=== PATIENT | male | born 1940 | race Caucasian/White ===

== ENCOUNTER 2021-01-25 17:15 | Emergency (ER) | payer MEDICARE, SELFPAY ==
--- NOTE | ~2021-01-25 | CT_ITS ---
EXAMINATION: CT abdomen pelvis w con INDICATION: Right lower quadrant abdominal pain TECHNIQUE: Computed tomographic images of the abdomen and pelvis were obtained after the administrati on of 100 cc of Omnipaque 350 intravenous contrast. The dose-length product (DLP) was 604.56 mGy-cm. Automated exposure control and iterative reconstruction technique were employed. COMPARISON: 09/05/2019 FINDINGS: Minimal dependent atelectasis is present in the lung bases. The heart size is normal. The g allbladder is surgically absent. There is mild enlargement of the common bile duct and central intrah epatic ducts which is likely due to post cholecystectomy state. Trace pneumobilia is again noted. The liver, spleen, pancreas, and adrenal glands are normal. The kidneys are unremarkable. No pathologica lly enlarged abdominal or pelvic lymph nodes are identified. There is no free intraperitoneal gas or evidence of bowel obstruction. There is calcified atherosclerosis of the aorta and many of the other arteries. The appendix is normal. Colonic diverticulosis is present without evidence of diverticuliti s. There is a large right inguinal hernia containing nonobstructed small bowel. Changes of mesh ventr al hernia repair are noted. There is severe lumbar spondylosis. IMPRESSION: 1. Large right extrarenal hernia containing nonobstructed small bowel. Reviewed, dictated and finalized at location A.
[2021-01-25 17:18] VITALS: BP 156/78; PULSE 95; RESP 18; TEMP 36.3; O2SAT 99
[2021-01-25 17:42] VITALS: BP 165/71
[2021-01-25 17:46] VITALS: BP 148/76
[2021-01-25 17:46] LABS: Basophils Absolute Auto 0.1 K/mm3 (0.0-0.1); Basophils Percent Auto 0.9 % (0.2-1.2); Eosinophils Absolute Auto 0.4 K/mm3 (0-0.3); Eosinophils Percent Auto 4.9 % (0-4.4); Hematocrit 48.3 % (42.0-52.0); Hemoglobin 16.5 g/dL (14.0-18.0); Immature Granulocyte Absolute 0.04 K/mm3 (0.00-0.031); Immature Granulocyte Percent A 0.5 % (0-0.5); Lymphocytes Absolute Auto 1.43 K/mm3 (0.9-3.2); Lymphocytes Percent Auto 18.8 % (18.3-44.2); Mean Corpuscular HGB Conc 34.2 g/dl (32-36); Mean Corpuscular Hemoglobin 32.9 pg (26-34); Mean Corpuscular Volume 96.4 fl (80-100); Mean Platelet Volume 10.4 fl (7.4-10.4); Monocytes Absolute Auto 0.7 K/mm3 (0.1-0.6); Monocytes Percent Auto 9.6 % (2.6-8.5); Neutrophils Percent Auto 65.3 % (45.5-73.1); Platelet Count Result 204 k/mm3 (150-375); Red Blood Count 5.01 M/mm3 (4.6-6.20); Red Cell Distribution Width 12.2 % (11.5-14.5); White Blood Count 7.6 K/mm3 (4.5-10.0)
--- NOTE | 2021-01-25 17:52 | ED.ABDPAIN ---
HPI - Abdominal Pain General Chief Complaint: Abdominal Pain Stated Complaint: rt abd pain shooting down leg Time Seen by Provider: 01/25/21 17:29 Source: patient Mode of arrival: ambulatory Limitations: no limitations History of Present Illness HPI narrative: Patient is an 80-year-old male complaining of right lower quadrant pain, 5 out of 10, nonradiating, dull that started approximately 2 days ago after eating [facility] crispy chicken . Patient also complained of urinary symptoms, dribbling . Patient denies any chest pain, shortness of breath, nausea, vomiting, diarrhea, fever or chills. MD elicited complaint: abdominal pain Location: RLQ Related Data Allergies Allergy/AdvReac Type Severity Reaction Status Date / Time No Known Drug Allergies Allergy Unknown Unknown Verified 01/25/21 17:36 Review of Systems Review of Systems: All systems reviewed & are unremarkable except as noted in HPI and below Constitutional: Constitutional: Denies body ache(s), Denies chills, Denies excessive sweating, Denies fatigue, Denies fever(s), Denies headache(s), Denies lethargy, Denies malaise, Denies weakness and Denies weight loss Eyes: Eyes: Denies blurry vision, Denies change in vision and Denies loss of vision ENT: Denies dizziness, Denies ear discharge, Denies headache(s), Denies lip swelling, Denies epistaxis, Denies nasal congestion, Denies neck pain, Denies throat swelling and Denies tongue swelling Cardiovascular: Cardiovascular: Denies chest pain, Denies chest pain at rest, Denies chest pain with activity, Denies diaphoresis, Denies rapid heart rate, Denies edema, Denies irregular heart rhythm, Denies lightheadedness, Denies palpitations, Denies dyspnea and Denies dyspnea on exertion Respiratory: Respiratory: Denies chest congestion, Denies cough, Denies hemoptysis, Denies dyspnea and Denies dyspnea on exertion Gastrointestinal: Gastrointestinal: Denies melena, Denies hematochezia, Denies diarrhea, Denies nausea, Denies vomiting and Denies hematemesis Musculoskeletal: Musculoskeletal: Denies abnormal gait, Denies deformity, Denies joint swelling, Denies limited range of motion, Denies neck pain and Denies numbness Neurologic: Denies Abnormal speech present, Denies abnormal gait, Denies confusion, Denies dizziness, Denies headache(s), Denies focal weakness, Denies loss of vision, Denies numbness, Denies Other visual disturbances, Denies Sensory deficit (Neuro) and Denies weakness Psychiatric: Psychiatric: Denies confusion, Denies depression, Denies auditory hallucinations, Denies homicidal ideation and Denies suicidal ideation Endocrine: Endocrine: Denies cold intolerance, Denies excessive sweating, Denies fatigue, Denies heat intolerance and Denies palpitations Hematologic/Lymphatic: Hematologic/Lymphatic: Denies easy bleeding and Denies easy bruising Allergic/Immunologic: Allergic/Immunologic: Denies lip swelling, Denies throat swelling and Denies tongue swelling PMFSH Past Medical History Medical History Cataracts, bilateral Clavicle fracture DVT (deep venous thrombosis) Gallstones Gout HTN (hypertension) Surgical History Surgical History History of cataract surgery Hx of cholecystectomy Social History Social History Smoking status: Never smoker Second hand tobacco smoke exposure: No Alcohol intake: current Gender identity (if verbalized by the patient): Male Exam Const: General: cooperative, healthy appearing, comfortable, no acute distress, well developed, alert and awake; No confusion Orientation/consciousness: oriented to person, oriented to place, oriented to time, patient oriented x3 and No confusion Limitations: no limitations HENMT: Head: normal to inspection, normocephalic and atraumatic Ears: hearing grossly normal bilaterally, TM normal on
[2021-01-25 17:57] LABS: Alanine Aminotransferase 25 U/L (4-50); Albumin Level 4.6 g/dL (3.5-5.1); Alkaline Phosphatase 91 U/L (38-126); Anion Gap 8 mmol/L (8-16); Aspartate Amino Transferase 38 U/L (17-59); Bilirubin,Total 3.5 mg/dL (0.2-1.3); Blood Urea Nitrogen 9 mg/dL (9-20); Calcium 9.5 mg/dL (8.4-10.2); Carbon Dioxide 28 mmol/L (22-30); Chloride 99 mmol/L (98-107); Estimated CRCL calculation 59 ml/min; Estimated Glomerular Filt Rate > 60; Glucose 86 mg/dL (75-110); Lipase 78 U/L (23-300); Potassium 4.1 mmol/L (3.4-5.0); Sodium 135 mmol/L (137-145)
[2021-01-25 18:30] LABS: Basophils Percent Auto 0.6 % (0.2-1.2); Eosinophils Absolute Auto 0.4 K/mm3 (0-0.3); Eosinophils Percent Auto 5.5 % (0-4.4); Hematocrit 41.7 % (42.0-52.0); Hemoglobin 14.3 g/dL (14.0-18.0); Immature Granulocyte Absolute 0.02 K/mm3 (0.00-0.031); Immature Granulocyte Percent A 0.3 % (0-0.5); Lymphocytes Absolute Auto 1.01 K/mm3 (0.9-3.2); Mean Corpuscular HGB Conc 34.3 g/dl (32-36); Mean Corpuscular Hemoglobin 33.2 pg (26-34); Mean Corpuscular Volume 96.8 fl (80-100); Mean Platelet Volume 10.6 fl (7.4-10.4); Monocytes Absolute Auto 0.7 K/mm3 (0.1-0.6); Monocytes Percent Auto 9.9 % (2.6-8.5); Neutrophils Absolute Auto 4.6 K/mm3 (1.3-6.7); Neutrophils Percent Auto 68.7 % (45.5-73.1); Platelet Count Result 155 k/mm3 (150-375); Red Blood Count 4.31 M/mm3 (4.6-6.20); White Blood Count 6.8 K/mm3 (4.5-10.0)
[2021-01-25 18:40] LABS: INR 0.9; Prothrombin Time 12.7 Seconds (11.1-14.7)
[2021-01-25 18:41] LABS: Partial Thromboplastin Time 27.2 SECONDS (22.3-36.8)
[2021-01-25 18:42] LABS: Lactic Acid Reflex 0.8 mmol/L (0.7-2.1)
[2021-01-25 18:43] LABS: Alanine Aminotransferase 20 U/L (4-50); Albumin Level 3.8 g/dL (3.5-5.1); Alkaline Phosphatase 70 U/L (38-126); Anion Gap 4 mmol/L (8-16); Aspartate Amino Transferase 33 U/L (17-59); Bilirubin,Total 2.8 mg/dL (0.2-1.3); Blood Urea Nitrogen 9 mg/dL (9-20); Calcium 8.5 mg/dL (8.4-10.2); Carbon Dioxide 27 mmol/L (22-30); Chloride 101 mmol/L (98-107); Estimated CRCL calculation 66 ml/min; Estimated Glomerular Filt Rate > 60; Glucose 79 mg/dL (75-110); Lipase 56 U/L (23-300); Sodium 132 mmol/L (137-145)
[2021-01-25] MEDS: LACTATED RINGERS 1,000 ML 999 ML IV CONT (18:58)
[2021-01-25 19:50] LABS: Add Urine Microscopic? YES; Appearance Urine Clear (Clear); Bilirubin Urine Negative (Negative); Blood Urine Negative (Negative); Color Urine Straw (Yellow); Glucose Urine UA Negative (Negative); Ketones Urine Trace mg/dL (Negative); Leukocyte Esterase Ur Negative LEU/UL (Negative); Nitrate Urine Negative (Negative); Protein Urine Negative (Negative); RBC Urine 0-2 /hpf (0-2); Specific Grav Ur 1.023 (1.001-1.035); Urobilinogen Urine Negative mg/dL (<2.0); WBC Urine 0-3 /hpf
[2021-01-25 20:48] VITALS: BP 138/74; PULSE 98; RESP 18; O2SAT 98
== END 2021-01-25 20:51 | disposition home or self-care (01) ==
PROVIDERS: Emergency Provider Emergency Medicine; PCP Internal Medicine
DX: K40.90 Unilateral inguinal hernia, without obstruction or gangrene, not specified as recurrent (principal); I10 Essential (primary) hypertension; M10.9 Gout, unspecified; Z98.42 Cataract extraction status, left eye; Z86.718 Personal history of other venous thrombosis and embolism; Z98.41 Cataract extraction status, right eye
CPT/HCPCS: 36415; 74177; 80053; 81001; 83605; 83690; 85025; 85610; 85730; 96360; 99284; J7120; Q9967

== ENCOUNTER 2021-11-24 06:45 | Inpatient (IN) | payer MEDICARE, SELFPAY ==
[2021-11-24] VITALS (13 sets, daily range): BP systolic 82–172; BP diastolic 53–87; PULSE 91–126; RESP 16–20; TEMP 36.2–37.2; O2SAT 98–100; BMI 26.4
--- NOTE | ~2021-11-24 | CT_ITS ---
EXAMINATION: CT abdomen pelvis w con DATE: 11/24/2021 08:07 INDICATION: Lower gastrointestinal hemorrhage. TECHNIQUE: Computed tomography (CT) of the abdomen and pelvis was performed with 100 mL Omnipaque 350 intravenous contrast. Automated exposure control and iterative reconstruction technique were employe d. The dose-length product was 683.27 mGy-cm. COMPARISON: CT abdomen and pelvis 01/25/2021 FINDINGS: The visualized portions of the lung bases demonstrate mild atelectasis. There are nodules i n the lower lobes measuring up to 5 mm. No pleural effusion. No pleural effusion. The heart size is n ormal. No pericardial effusion. Pneumobilia is noted, likely secondary to sphincterotomy. There are c hanges of cholecystectomy. The spleen, pancreas, adrenal glands, and kidneys are normal. The prostate is severely enlarged. There is diverticulosis of the colon without evidence of diverticulitis. The a ppendix is normal. There are changes of ventral hernia repair. There is a right inguinal hernia conta ining nonobstructed small bowel. There is prominent fat in left inguinal canal. There are changes of left inguinal hernia repair. There are no pathologically enlarged lymph nodes. There is no free intra peritoneal fluid. There is severe lumbar spondylosis. IMPRESSION: 1. Right inguinal hernia containing nonobstructed small bowel. 2. Prominent fat in left inguinal canal that may be a recurrent inguinal hernia or the normal postope rative appearance. 3. New small nodules in the lower lobes of the lungs, likely infection. Reviewed, dictated and finalized at location E. AND EXHIBIT DESIGNER IMPRESSION: 1. Right inguinal hernia containing nonobstructed small bowel. 2. Prominent fat in left inguinal canal that may be a recurrent inguinal hernia or the normal postoperative appearance. 3. New small nodules in the lower lobes of the lungs, likely infection.
[2021-11-24] MEDS: LACTATED RINGERS 1,000 ML 999 ML IV CONT (07:00)
[2021-11-24 07:24] LABS: Basophils Absolute Auto 0.1 K/mm3 (0.0-0.1); Basophils Percent Auto 1.1 % (0.2-1.2); Eosinophils Absolute Auto 0.5 K/mm3 (0-0.3); Eosinophils Percent Auto 7.5 % (0-4.4); Hematocrit 44.3 % (42.0-52.0); Hemoglobin 14.6 g/dL (14.0-18.0); Immature Granulocyte Absolute 0.03 K/mm3 (0.00-0.031); Immature Granulocyte Percent A 0.5 % (0-0.5); Lymphocytes Absolute Auto 1.32 K/mm3 (0.9-3.2); Lymphocytes Percent Auto 20.7 % (18.3-44.2); Mean Corpuscular Hemoglobin 32.6 pg (26-34); Mean Corpuscular Volume 98.9 fl (80-100); Mean Platelet Volume 10.6 fl (7.4-10.4); Monocytes Absolute Auto 0.6 K/mm3 (0.1-0.6); Monocytes Percent Auto 8.9 % (2.6-8.5); Neutrophils Absolute Auto 3.9 K/mm3 (1.3-6.7); Neutrophils Percent Auto 61.3 % (45.5-73.1); Platelet Count Result 176 k/mm3 (150-375); Red Blood Count 4.48 M/mm3 (4.6-6.20); Red Cell Distribution Width 12.3 % (11.5-14.5); White Blood Count 6.4 K/mm3 (4.5-10.0)
--- NOTE | 2021-11-24 07:30 | ED.GIBLEED ---
HPI - GI Bleed General Chief complaint: GI Bleed Stated complaint: bloody stools Time Seen by Provider: 11/24/21 07:01 Source: patient History of Present Illness HPI Narrative: Patient presents with bloody stool. Patient reports symptoms started this morning he had 3 episode of diarrhea that were dee blood he was concerned so he came to the ER for evaluation. Patient denies any history of the same denies the use of any blood thinners denies any NSAID use denies any abdominal pain. Does report feels a little bit lightheaded. Colitis but is not associated with stool just bloody diarrhea. Denies any GI history. Related Data Allergies Allergy/AdvReac Type Severity Reaction Status Date / Time No Known Drug Allergies Allergy Unknown Unknown Verified 11/24/21 08:13 Review of Systems Review of Systems: CONSTITUTIONAL: Denies fever, chills, or sweats. EYES: Denies visual changes, redness, or discharge. ENT: Denies rhinorrhea, congestion, sore throat, or otalgia. CARDIOVASCULAR: Denies chest pain, palpitations, or edema. RESPIRATORY: Denies cough or dyspnea. GASTROINTESTINAL: Denies abdominal pain, nausea, vomiting. GENITOURINARY: Denies dysuria or hematuria. SKIN: Denies rash or itching. MUSCULOSKELETAL: Denies back pain, joint pain, or myalgia. NEUROLOGIC: Denies headache, numbness, or weakness. PSYCHIATRIC: Denies anxiety or depression. All systems reviewed & are unremarkable except as noted in HPI and below PMFSH Past Medical History Medical History Cataracts, bilateral Clavicle fracture DVT (deep venous thrombosis) Gallstones Gout HTN (hypertension) Surgical History Surgical History History of cataract surgery Hx of cholecystectomy Social History Social History Smoking status: Never smoker Second hand tobacco smoke exposure: No Alcohol intake: current Gender identity (if verbalized by the patient): Male Exam Narrative: GENERAL: Well-appearing, well-nourished, and in no acute distress. HEAD: Normocephalic, atraumatic. EYES: PERRLA and EOMI. ENT: Nares clear, no rhinorrhea or epistaxis. Mucous membranes moist. NECK: Supple. No masses. No JVD CHEST: Clear to auscultation. No respiratory distress. No wheezes rales or rhonchi HEART: Regular rate and rhythm. No murmur heard. Normal peripheral pulses. ABDOMEN: Soft, nontender, nondistended, normal active bowel sounds. EXTREMITIES: Normal range of motion. No edema. SKIN: Warm, dry, no rash. NEURO: No focal deficits. Alert and oriented x3. PSYCH: Normal mood and affect. Course Reevaluation(s) Reevaluation #1: Patient continues to have flank bloody stools heart rate is slowly increasing patient is in the process of being crossmatched for 2 units of blood. Plan for admission Date: 11/24/21 Time: 08:38 Consultations Consultation #1: Discussed case with GI given patient's dee blood to evaluate as an inpatient for possible scope patient post hospital seen for admission. Date: 11/24/21 Time: 08:39 Vital Signs Vital signs: Vital Signs Temperature 36.7 C 11/24/21 06:46 Pulse Rate 126 H 11/24/21 06:46 Respiratory Rate 18 11/24/21 06:46 Blood Pressure 122/60 11/24/21 06:46 Pulse Oximetry 100 11/24/21 06:46 Temperature 36.8 C 11/24/21 10:10 Pulse Rate 104 H 11/24/21 10:10 Respiratory Rate 20 11/24/21 10:10 Blood Pressure 166/87 H 11/24/21 10:10 Pulse Oximetry 100 11/24/21 10:10 MDM - GI Bleed [facility] Narrative Medical decision making narrative: Patient presents for dee bloody diarrhea. Patient overall looks clinically well vital signs initially reassuring patient had multiple episodes of bowel movements in the ER which were dee blood. Labs imaging ordered and were clinically unremarkable. Patient reported feeling worse throughout his ER stay and his heart rat
[2021-11-24 07:37] LABS: Alanine Aminotransferase 19 U/L (4-50); Albumin Level 3.8 g/dL (3.5-5.1); Alkaline Phosphatase 70 U/L (38-126); Anion Gap 6 mmol/L (8-16); Aspartate Amino Transferase 28 U/L (17-59); Bilirubin,Total 1.5 mg/dL (0.2-1.3); Blood Urea Nitrogen 9 mg/dL (9-20); Calcium 8.8 mg/dL (8.4-10.2); Carbon Dioxide 25 mmol/L (22-30); Chloride 103 mmol/L (98-107); Estimated CRCL calculation 58 ml/min; Estimated Glomerular Filt Rate > 60; Glucose 104 mg/dL (65-110); Lipase 70 U/L (23-300); Magnesium 2.3 mg/dL (1.6-2.3); Potassium 3.5 mmol/L (3.4-5.0); Sodium 134 mmol/L (137-145)
[2021-11-24] MEDS: DICYCLOMINE HCL INJ 20 MG/2 ML VIAL IM (08:22)
[2021-11-24 08:28] LABS: INR 0.9; Prothrombin Time 12.5 Seconds (11.1-14.7)
[2021-11-24 08:29] LABS: Partial Thromboplastin Time 24.5 SECONDS (22.3-36.8)
--- NOTE | 2021-11-24 08:31 | ECG_ITS ---
Measurements Intervals [place] Rate: 112 P: 76 FL: 162 QRS: -43 QRSD: 73 T: 33 QT: 316 QTc: 432 Interpretive Statements SINUS TACHYCARDIA ATRIAL PREMATURE COMPLEXES CONSIDER INFERIOR INFARCT, AGE INDETERMINATE BASELINE ARTIFACT- I, II, III, AVR, AVF, V2-V6 ABNORMAL ECG Electronically Signed On 11-24-2021 12:05:06 DISTRIBUTION OPERATIONS SUPERVISOR by Uziel Ni D.O.
[2021-11-24] MEDS: TUBING, BLOOD SET 1 EACH XX (09:11)
[2021-11-24] MEDS: SODIUM CHLORIDE 0.9% IV 1,000 ML 125 ML IV CONT ×2 (09:29→20:26)
[2021-11-24 10:54] LABS: SARS-CoV-2 RNA PCR Negative
--- NOTE | 2021-11-24 11:51 | PC.NURSE ---
pt has been having copious amounts of bright red blood stools. throughout the morning. has some dizziness and abd pain
--- NOTE | 2021-11-24 13:50 | PM.IMHP ---
H&P: HPI History of Present Illness Date/Time: 11/24/21 13:50 Chief Complaint: Bloody stools. Narrative: This is an 81-year-old male with history of hypertension and gout who presented to the emergency department via EMS from home for evaluation of bloody stools. He developed loose stools this morning and he had 3 episodes of dee bloody diarrhea prior to coming in for evaluation. Since that time he has had multiple bloody stools, mostly bright red blood though some have been admixed with dark maroon-colored clots. Aside from mild lightheadedness and occasional tenesmus, he has no other complaints and he specifically denies abdominal pain, distension, nausea, and vomiting. He has not had fever, chills, or sweats. He denies having similar symptoms in the past though it looks like he had a colonoscopy done many years ago for rectal bleeding in November 2012 which demonstrated extensive diverticulosis and internal hemorrhoids. Review of Systems Review of Systems: 12 systems were reviewed. no cold or flu symptoms. Denies sick contacts. Denies chest pain shortness of breath. No cough. Denies dysuria. CT of the abdomen and pelvis today showed findings of infection at the lung bases though patient denies history to suggest pneumonia. He also denies dysphagia and concerns for aspiration. He has never had signs or symptoms of alcohol withdrawal. Except as documented, all other systems were reviewed and are negative. [facility] Past Medical History Medical History Ascending cholangitis (07/2014) Clavicle fracture Deep venous thrombosis Dyslipidemia Essential (primary) hypertension Gallstones Gout Surgical History Surgical History History of cataract surgery History of cholecystectomy History of endoscopic retrograde cholangiopancreatography (09/2011) With removal obstructing biliary stone, biliary sphincterotomy and stent placement. History of esophagogastroduodenoscopy Family History Family History Father Coronary artery disease Social History Social History (Updated 11/24/21 @ 20:33 by Nai Claire PA-C) Social History: Surrogate decision maker: Neil Ferrell, son. Code status: Full code. Smoking status: Former smoker Second hand tobacco smoke exposure: No Additional smoking assessment comments: Quit in the 1994.. Alcohol intake: current Alcohol use details: 4-5 beers most nights of the week. Substance use: never Additional living arrangements comments: . Lives alone in [place]. Additional occupation/education comments: Retired. Meds Home Medications and Allergies Home Medications Medication Instructions Recorded Confirmed Type amlodipine 5 mg tablet 5 mg PO DAILY #90 tablet 05/11/21 11/24/21 Rx allopurinol 100 mg tablet 100 mg PO DAILY #90 tablet 11/09/21 11/24/21 Rx Allergies Allergy/AdvReac Type Severity Reaction Status Date / Time No Known Drug Allergies Allergy Unknown Unknown Verified 11/24/21 08:13 Vital Signs Vital Signs - 24 hr 11/24/21 06:46 11/24/21 07:07 11/24/21 08:14 Temperature 98.0 F Pulse Rate 126 H 91 116 H Respiratory Rate 18 18 20 Blood Pressure 122/60 82/65 L 146/64 H Pulse Oximetry 100 98 100 11/24/21 09:01 11/24/21 09:20 11/24/21 10:10 Temperature 98.1 F 98.3 F 98.2 F Pulse Rate 112 H 102 H 104 H Respiratory Rate 20 18 20 Blood Pressure 151/72 H 138/68 166/87 H Pulse Oximetry 100 100 100 11/24/21 11:30 11/24/21 11:59 11/24/21 12:17 Temperature 98.4 F 98.3 F Pulse Rate 105 H 97 96 Respiratory Rate 16 20 16 Blood Pressure 169/79 H 172/53 H 152/66 H Pulse Oximetry 99 99 99 11/24/21 13:11 Temperature 98.9 F Pulse Rate 94 Respiratory Rate 18 Blood Pressure 157/70 H Pulse Oximetry 100 Exam Narrative: General: Well-developed, nontoxic-appearin
--- NOTE | 2021-11-24 16:15 | WPDGICN ---
Assessment and Plan Assessment and plan (1) Rectal bleeding: Code(s): K62.5 - Hemorrhage of anus and rectum Status: Acute Assessment and Plan: he states that he has never had bleeding like this before. I should add that he has not anticoagulated. CT scan does not show any evidence of colitis and he denies abdominal pain that would suggest ischemic colitis. I told he will need a colonoscopy. He was not keen to that idea. I doubt that we would be able to prep him for tomorrow because he is nauseated and would not be able the tolerate that volume of prep at this time (2) Tachycardia: Code(s): R00.0 - Tachycardia, unspecified Status: Acute Assessment and Plan: apparently his pulse was higher earlier. Now it is 100. He states that because of the rapid heart rate they would not let him use the commode but he cannot void in the bedpan and finds it very uncomfortable (3) HTN (hypertension): Qualifiers: Hypertension type: primary hypertension Qualified Code(s): I10 - Essential (primary) hypertension Code(s): I10 - Essential (primary) hypertension Status: Acute Assessment and Plan: he takes amlodipine but now actually is a bit hypotensive. He will be rehydrated and admitted with the intent of performing a colonoscopy, probably Saturday morning GI Consult Note Consult date/time: 11/24/21 16:15 HPI: Siddharth Ferrell is a 81 year old male who came to the emergency room this morning because of rectal bleeding. He states that he thought he was having diarrhea but noted that he had passed only a large amount of dark red blood. He had a couple more episodes at home. He came to the emergency room where he had at least 1 or 2 more bloody stools. So far his hemoglobin is stable. He states that he denies abdominal pain or cramping but he was quite uncomfortable when he was left on the bedpan for an hour or so. He was brought a regular diet for lunch although he 8 very little perhaps a bite or 2. He cannot recall when he had his last colonoscopy but he has had 1 or 2 in the past. He states that he had had an ERCP a couple of times because he kept getting common bile duct stones after his cholecystectomy which was years ago. The attempted ERCP here was unsuccessful and he was sent to [facility] for treatment. He says his appetite is good. He denies nausea vomiting dysphagia or significant heartburn. He has not had any bowel problems lately. He denies straining or severe constipation he states that his doctor who recently ordered blood test told that his cholesterol was the best he has ever seen that he is in great health for his age Review of Systems Review of Systems: All systems reviewed & are unremarkable except as noted in HPI and below PMFSH Past Medical History Medical History Ascending cholangitis (07/2014) Clavicle fracture Deep venous thrombosis Dyslipidemia Essential (primary) hypertension Gallstones Gout Surgical History Surgical History History of cataract surgery History of cholecystectomy History of endoscopic retrograde cholangiopancreatography (09/2011) With removal obstructing biliary stone, biliary sphincterotomy and stent placement. History of esophagogastroduodenoscopy Family History Family History Father Coronary artery disease Social History Social History Smoking status: Former smoker Second hand tobacco smoke exposure: No Additional smoking assessment comments: Quit in the 1980s. Alcohol intake: current Additional living arrangements comments: . Additional occupation/education comments: Retired. Meds Home Medications and Allergies Home Medications Medication Instructions Recorded
[2021-11-24 20:35] LABS: Hematocrit 39.8 % (42.0-52.0); Hemoglobin 13.5 g/dL (14.0-18.0)
[2021-11-24 20:54] LABS: Lactic Acid Reflex 0.6 mmol/L (0.7-2.1)
[2021-11-24 20:57] LABS: CRP < 0.5 mg/dL (<1.0)
--- NOTE | 2021-11-24 23:25 | ADMGEN ---
This patient, Siddharth Ferrell, was admitted to IMU Room 206-02. Patient/family oriented to hospital policies and general routines including ID bracelet, bed and alarms, visiting hours, pain management, procedures, bathroom and other care routines, personal items, smoking policy, room service/diet, and visiting hours. Information on how to activate the Rapid Response Team has been discussed. Patient/Family are encouraged to report perceived risks to care and to ask questions if they do not understand what they are told or what they should do.
[2021-11-25] VITALS (20 sets, daily range): BP systolic 116–175; BP diastolic 58–74; PULSE 89–121; RESP 18–22; TEMP 35.6–37.4; O2SAT 96–100
[2021-11-25 03:08] LABS: Hematocrit 38.4 % (42.0-52.0); Hemoglobin 13.1 g/dL (14.0-18.0); Mean Corpuscular HGB Conc 34.1 g/dl (32-36); Mean Corpuscular Hemoglobin 32.9 pg (26-34); Mean Corpuscular Volume 96.5 fl (80-100); Mean Platelet Volume 10.7 fl (7.4-10.4); Platelet Count Result 154 k/mm3 (150-375); Red Blood Count 3.98 M/mm3 (4.6-6.20); Red Cell Distribution Width 13.5 % (11.5-14.5); White Blood Count 9.9 K/mm3 (4.5-10.0)
[2021-11-25 03:18] LABS: Anion Gap 4 mmol/L (8-16); Blood Urea Nitrogen 10 mg/dL (9-20); Calcium 8.3 mg/dL (8.4-10.2); Carbon Dioxide 23 mmol/L (22-30); Chloride 108 mmol/L (98-107); Estimated CRCL calculation 65 ml/min; Estimated Glomerular Filt Rate > 60; Glucose 92 mg/dL (65-110); Potassium 3.6 mmol/L (3.4-5.0); Sodium 135 mmol/L (137-145)
[2021-11-25 08:32] LABS: Hematocrit 41.1 % (42.0-52.0); Hemoglobin 14.1 g/dL (14.0-18.0)
[2021-11-25] MEDS: allopurinoL 100 MG TABLET PO (09:32)
[2021-11-25] MEDS: amLODIPine BESYLATE 5 MG TABLET PO (09:32)
--- NOTE | 2021-11-25 13:57 | PM.IMPN ---
Progress Note: A&P Assessment and Plan (1) Rectal bleeding: Code(s): K62.5 - Hemorrhage of anus and rectum Status: Acute Assessment and Plan: Patient reports novel having rectal bleeding in the past however it is noted that he had a colonoscopy in November 2012 for evaluation of rectal bleeding, found to have extensive diverticulosis and internal hemorrhoids. CT of the abdomen and pelvis did not show any signs of colitis, diverticulitis, or findings concerning for ischemic colitis. For now we will continue to monitor the patient closely and follow his hemoglobin and hematocrit. Dr. Tate has been consulted and his input is appreciated. With acute bleeding he was transfused 2 unit of PRBC 11/24/2021 (2) Essential (primary) hypertension: Code(s): I10 - Essential (primary) hypertension Status: Acute Assessment and Plan: Blood pressures were reviewed and initially they were in the upper 80s systolic but have progressively increased as the day has gone on. We will review and resume his antihypertensives as appropriate. Continue to monitor closely. (3) Diarrhea: Code(s): R19.7 - Diarrhea, unspecified Status: Acute Assessment and Plan: Send stool culture Subjective Date/time seen: 11/25/21 13:57 Interval history: HPI:This is an 81-year-old male with history of hypertension and gout who presented to the emergency department via EMS from home for evaluation of bloody stools. He developed loose stools this morning and he had 3 episodes of dee bloody diarrhea prior to coming in for evaluation. Since that time he has had multiple bloody stools, mostly bright red blood though some have been admixed with dark maroon-colored clots. Aside from mild lightheadedness and occasional tenesmus, he has no other complaints and he specifically denies abdominal pain, distension, nausea, and vomiting. He has not had fever, chills, or sweats. He denies having similar symptoms in the past though it looks like he had a colonoscopy done many years ago for rectal bleeding in November 2012 which demonstrated extensive diverticulosis and internal hemorrhoids. 11/25/2021 no overnight events. Feels weak. Nursing staff noted increased frequency of stool which is lose and consistency no further blood in stool noted Review of Systems Review of Systems: All systems reviewed & are unremarkable except as noted in HPI and below Exam Narrative: General: Well-developed, nontoxic-appearing elderly male. HEENT: PERRL, EOMI. Sclerae anicteric. Oral mucosa moist. Oropharynx clear. Neck: Supple. Respiratory: Lungs are clear to auscultation bilaterally. Cardiovascular: Regular rate and rhythm with S1-S2. Gastrointestinal: Abdomen is soft, protuberant, and nontender with positive bowel sounds. No guarding or rebound tenderness. Skin: Warm and dry. No rash or lesions on limited exam. Extremities: No cyanosis or clubbing. No edema. Radial and pedal pulses intact. Neurological: Alert. Cranial nerves 2-12 are grossly intact. No gross focal deficits to casual conversation. Psychiatric: Pleasant and cooperative with normal mood and affect. Judgment and insight intact. Objective Data Vital Signs Vital Signs: Vital Signs - 24 hr 11/24/21 17:02 11/24/21 22:36 11/24/21 23:15 Temperature 98.1 F 97.2 F L Pulse Rate 104 H 92 97 Respiratory Rate 18 18 18 Blood Pressure 158/72 H 158/72 H 154/72 H Pulse Oximetry 99 100 99 11/25/21 00:00 11/25/21 01:40 11/25/21 01:41 Temperature Pulse Rate 100 Respiratory Rate Blood Pressure 154/69 H 116/67 Pulse Oximetry 97 11/25/21 02:00 11/25/21 04:00 11/25/21 06:00 Temperature 99.3 F Pulse Rate 97 105 H 95 Respiratory Rate 18 Blood Pressure 140/63 Pulse Oximetry 98 11/25/21 08:00 11/25/21 08:13 11/25/21 09:20 Temperature 96.1 F L Pulse Rate 103 H 97 107 H Respiratory Rate 22 H Blood Pressure 158/73 H 146/63 H Pulse Oximetry
--- NOTE | 2021-11-25 17:28 | PC.NURSE ---
This patient, Siddharth Ferrell, was transferred to [ [facility]] on 11/25/21 at 1725. Personal belongings sent with patient. Report given to [Liyah ]. Appropriate documentation sent with patient.
--- NOTE | 2021-11-25 17:35 | PC.NURSE ---
This patient, Siddharth Ferrell, was received from [facility] on 11/25/21 at 1736. Patient/family oriented to unit policies and routines. Report received from ENEIDA Suárez.
[2021-11-26] VITALS (11 sets, daily range): BP systolic 136–148; BP diastolic 55–65; PULSE 64–110; RESP 16–21; TEMP 36.1–36.6; O2SAT 98–100
[2021-11-26 02:25] LABS: IFOB Positive Control Positive; Immunochemical Fecal Occult Bl Negative (N)
[2021-11-26 05:53] LABS: Basophils Percent Auto 0.6 % (0.2-1.2); Eosinophils Absolute Auto 0.3 K/mm3 (0-0.3); Eosinophils Percent Auto 4.1 % (0-4.4); Hematocrit 38.7 % (42.0-52.0); Hemoglobin 12.9 g/dL (14.0-18.0); Immature Granulocyte Absolute 0.03 K/mm3 (0.00-0.031); Immature Granulocyte Percent A 0.5 % (0-0.5); Immature Platelet Fraction Pct 5.6 % (0.9-11.2); Lymphocytes Absolute Auto 1.02 K/mm3 (0.9-3.2); Lymphocytes Percent Auto 16.2 % (18.3-44.2); Mean Corpuscular HGB Conc 33.3 g/dl (32-36); Mean Corpuscular Hemoglobin 33.4 pg (26-34); Mean Corpuscular Volume 100.3 fl (80-100); Monocytes Absolute Auto 0.7 K/mm3 (0.1-0.6); Neutrophils Absolute Auto 4.3 K/mm3 (1.3-6.7); Neutrophils Percent Auto 67.6 % (45.5-73.1); Platelet Count Result 151 k/mm3 (150-375); Red Blood Count 3.86 M/mm3 (4.6-6.20); Red Cell Distribution Width 13.4 % (11.5-14.5); White Blood Count 6.3 K/mm3 (4.5-10.0)
[2021-11-26 06:06] LABS: Alanine Aminotransferase 17 U/L (4-50); Albumin Level 3.2 g/dL (3.5-5.1); Alkaline Phosphatase 50 U/L (38-126); Anion Gap 3 mmol/L (8-16); Aspartate Amino Transferase 31 U/L (17-59); Bilirubin,Total 2.4 mg/dL (0.2-1.3); Blood Urea Nitrogen 14 mg/dL (9-20); Calcium 8.5 mg/dL (8.4-10.2); Carbon Dioxide 25 mmol/L (22-30); Chloride 107 mmol/L (98-107); Estimated CRCL calculation 65 ml/min; Estimated Glomerular Filt Rate > 60; Glucose 90 mg/dL (65-110); Potassium 3.5 mmol/L (3.4-5.0); Sodium 135 mmol/L (137-145)
[2021-11-26 07:08] LABS: Toxigenic C. Diff NEGATIVE (NEGATIVE)
[2021-11-26] MEDS: allopurinoL 100 MG TABLET PO (08:39)
[2021-11-26] MEDS: amLODIPine BESYLATE 5 MG TABLET PO (08:39)
--- NOTE | 2021-11-26 14:22 | PM.IMPN ---
Progress Note: A&P Assessment and Plan (1) Rectal bleeding: Code(s): K62.5 - Hemorrhage of anus and rectum Status: Acute Assessment and Plan: Patient reports novel having rectal bleeding in the past however it is noted that he had a colonoscopy in November 2012 for evaluation of rectal bleeding, found to have extensive diverticulosis and internal hemorrhoids. CT of the abdomen and pelvis did not show any signs of colitis, diverticulitis, or findings concerning for ischemic colitis. For now we will continue to monitor the patient closely and follow his hemoglobin and hematocrit. Dr. Tate has been consulted and his input is appreciated. With acute bleeding he was transfused 2 unit of PRBC 11/24/2021 H&H is stable Plan for colonoscopy in the morning tomorrow (2) Essential (primary) hypertension: Code(s): I10 - Essential (primary) hypertension Status: Acute Assessment and Plan: Blood pressures were reviewed and initially they were in the upper 80s systolic but have progressively increased as the day has gone on. We will review and resume his antihypertensives as appropriate. Continue to monitor closely. (3) Diarrhea: Code(s): R19.7 - Diarrhea, unspecified Status: Acute Assessment and Plan: Send stool culture Subjective Date/time seen: 11/26/21 14:22 Interval history: HPI:This is an 81-year-old male with history of hypertension and gout who presented to the emergency department via EMS from home for evaluation of bloody stools. He developed loose stools this morning and he had 3 episodes of dee bloody diarrhea prior to coming in for evaluation. Since that time he has had multiple bloody stools, mostly bright red blood though some have been admixed with dark maroon-colored clots. Aside from mild lightheadedness and occasional tenesmus, he has no other complaints and he specifically denies abdominal pain, distension, nausea, and vomiting. He has not had fever, chills, or sweats. He denies having similar symptoms in the past though it looks like he had a colonoscopy done many years ago for rectal bleeding in November 2012 which demonstrated extensive diverticulosis and internal hemorrhoids. 11/25/2021 no overnight events. Feels weak. Nursing staff noted increased frequency of stool which is lose and consistency no further blood in stool noted 11/26/2021 no overnight events. Feels weak had 1 or 2 episode of diarrhea denies any chest pain or shortness of breath no further blood in his stool Review of Systems Review of Systems: All systems reviewed & are unremarkable except as noted in HPI and below Exam Narrative: General: Well-developed, nontoxic-appearing elderly male. HEENT: PERRL, EOMI. Sclerae anicteric. Oral mucosa moist. Oropharynx clear. Neck: Supple. Respiratory: Lungs are clear to auscultation bilaterally. Cardiovascular: Regular rate and rhythm with S1-S2. Gastrointestinal: Abdomen is soft, protuberant, and nontender with positive bowel sounds. No guarding or rebound tenderness. Skin: Warm and dry. No rash or lesions on limited exam. Extremities: No cyanosis or clubbing. No edema. Radial and pedal pulses intact. Neurological: Alert. Cranial nerves 2-12 are grossly intact. No gross focal deficits to casual conversation. Psychiatric: Pleasant and cooperative with normal mood and affect. Judgment and insight intact. Objective Data Vital Signs Vital Signs: Vital Signs - 24 hr 11/25/21 14:57 11/25/21 16:00 11/25/21 18:12 Temperature Pulse Rate 110 H 115 H Respiratory Rate Blood Pressure Pulse Oximetry 96 11/25/21 20:00 11/25/21 21:26 11/25/21 21:28 Temperature 97.5 F L Pulse Rate 115 H 99 Respiratory Rate 18 Blood Pressure 137/59 L 127/64 Pulse Oximetry 98 11/26/21 00:00 11/26/21 04:00 11/26/21 04:28 Temperature 97.8 F Pulse Rate 76 64 81 Respiratory Rate 16 Blood Pressure 148/59 H Pulse Oximetry 100
[2021-11-26] MEDS: BISACODYL 5 MG TABLET EC 10 MG PO ×2 (15:01→20:28)
[2021-11-26] MEDS: polyethylene glycoL 3350 238 GM BOTTLE PO (15:01)
[2021-11-27] VITALS (11 sets, daily range): BP systolic 128–156; BP diastolic 53–70; PULSE 77–112; RESP 18–20; TEMP 36.4–36.9; O2SAT 96–100
[2021-11-27] MEDS: allopurinoL 100 MG TABLET PO (08:21)
[2021-11-27] MEDS: amLODIPine BESYLATE 5 MG TABLET PO (08:21)
[2021-11-27 08:58] LABS: Basophils Absolute Auto 0.1 K/mm3 (0.0-0.1); Basophils Percent Auto 0.9 % (0.2-1.2); Eosinophils Absolute Auto 0.6 K/mm3 (0-0.3); Eosinophils Percent Auto 8.3 % (0-4.4); Hematocrit 37.9 % (42.0-52.0); Immature Granulocyte Absolute 0.03 K/mm3 (0.00-0.031); Immature Granulocyte Percent A 0.4 % (0-0.5); Lymphocytes Absolute Auto 1.05 K/mm3 (0.9-3.2); Lymphocytes Percent Auto 15.5 % (18.3-44.2); Mean Corpuscular HGB Conc 34.3 g/dl (32-36); Mean Corpuscular Hemoglobin 32.8 pg (26-34); Mean Corpuscular Volume 95.7 fl (80-100); Mean Platelet Volume 10.3 fl (7.4-10.4); Monocytes Absolute Auto 0.6 K/mm3 (0.1-0.6); Monocytes Percent Auto 8.4 % (2.6-8.5); Neutrophils Absolute Auto 4.5 K/mm3 (1.3-6.7); Neutrophils Percent Auto 66.5 % (45.5-73.1); Platelet Count Result 149 k/mm3 (150-375); Red Blood Count 3.96 M/mm3 (4.6-6.20); Red Cell Distribution Width 12.9 % (11.5-14.5); White Blood Count 6.8 K/mm3 (4.5-10.0)
[2021-11-27 09:40] LABS: Alanine Aminotransferase 16 U/L (4-50); Alkaline Phosphatase 43 U/L (38-126); Anion Gap 2 mmol/L (8-16); Aspartate Amino Transferase 29 U/L (17-59); Bilirubin,Total 1.8 mg/dL (0.2-1.3); Blood Urea Nitrogen 7 mg/dL (9-20); Calcium 8.2 mg/dL (8.4-10.2); Carbon Dioxide 24 mmol/L (22-30); Chloride 105 mmol/L (98-107); Estimated CRCL calculation 73 ml/min; Estimated Glomerular Filt Rate > 60; Glucose 109 mg/dL (65-110); Magnesium 2.1 mg/dL (1.6-2.3); Potassium 3.3 mmol/L (3.4-5.0); Sodium 131 mmol/L (137-145)
--- NOTE | 2021-11-27 09:49 | WPDANESEPPF ---
Anes - Initial Pre Proc Eval Procedure: Operation Date: 11/27/21 14:15 Proposed Procedures p Colonoscopy - Law Tate MD Date/Time: 11/27/21 09:49 Surgeon: Shantell Soto MD Pre Op Diagnosis: GI bleed Patient Data Age: 81 Gender: M Height: 1.8 m Weight: 86 kg Last Vital Signs Temp 36.5 C 11/27/21 06:00 Pulse 87 11/27/21 06:00 Resp 18 11/27/21 06:00 BP 128/62 11/27/21 06:00 Pulse Ox 97 11/27/21 06:00 Allergies Allergy/AdvReac Type Severity Reaction Status Date / Time No Known Drug Allergies Allergy Unknown Unknown Verified 11/24/21 08:13 Home Medications Medication Instructions Recorded Confirmed Type amlodipine 5 mg tablet 5 mg PO DAILY #90 tablet 05/11/21 11/24/21 Rx allopurinol 100 mg tablet 100 mg PO DAILY #90 tablet 11/09/21 11/24/21 Rx Laboratory Tests 11/27/21 11/27/21 08:52 08:52 WBC 6.8 K/mm3 K/mm3 (4.5-10.0) RBC 3.96 M/mm3 L M/mm3 (4.6-6.20) Hgb 13.0 g/dL L g/dL (14.0-18.0) Hct 37.9 % L % (42.0-52.0) MCV 95.7 fl fl (80-100) MCH 32.8 pg pg (26-34) MCHC 34.3 g/dl g/dl (32-36) RDW 12.9 % % (11.5-14.5) Plt Count 149 k/mm3 L k/mm3 (150-375) MPV 10.3 fl fl (7.4-10.4) Immature Gran % (Auto) 0.4 % % (0-0.5) Neut % (Auto) 66.5 % % (45.5-73.1) Lymph % (Auto) 15.5 % L % (18.3-44.2) [place] % (Auto) 8.4 % % (2.6-8.5) Eos % (Auto) 8.3 % H % (0-4.4) Baso % (Auto) 0.9 % % (0.2-1.2) Lymph # (Auto) 1.05 K/mm3 K/mm3 (0.9-3.2) [place] # (Auto) 0.6 K/mm3 K/mm3 (0.1-0.6) Eos # (Auto) 0.6 K/mm3 H K/mm3 (0-0.3) Baso # (Auto) 0.1 K/mm3 K/mm3 (0.0-0.1) Abs Immat Gran (auto) 0.03 K/mm3 K/mm3 (0.00-0.031) Absolute Neuts (auto) 4.5 K/mm3 K/mm3 (1.3-6.7) Absolute Nucleated RBC 0.0 K/mm3 K/mm3 (0.0-0.012) Nucleated RBC % 0.0 % % (0.0-0.2) Sodium 131 mmol/L L mmol/L (137-145) Potassium 3.3 mmol/L L mmol/L (3.4-5.0) Chloride 105 mmol/L mmol/L (98-107) Carbon Dioxide 24 mmol/L mmol/L (22-30) Anion Gap 2 mmol/L L mmol/L (8-16) BUN 7 mg/dL L D mg/dL (9-20) Creatinine 0.70 mg/dL mg/dL (0.7-1.3) Estim Creat Clear Calc 73 ml/min ml/min Estimated GFR > 60 (59 - ) Glucose 109 mg/dL mg/dL (65-110) Calcium 8.2 mg/dL L mg/dL (8.4-10.2) Magnesium 2.1 mg/dL mg/dL (1.6-2.3) Total Bilirubin 1.8 mg/dL H mg/dL (0.2-1.3) AST 29 U/L U/L (17-59) ALT 16 U/L U/L (4-50) Alkaline Phosphatase 43 U/L U/L (38-126) Total Protein 6.0 g/dL L g/dL (6.3-8.2) Albumin 3.0 g/dL L g/dL (3.5-5.1) Patient hx anesthesia problems: none Family hx anesthesia problems: none Results Review: All pre-operative results and documents have been reviewed as part of the pre-operative evaluation. [facility] Past Medical History Medical History Ascending cholangitis (07/2014) Clavicle fracture Deep venous thrombosis Dyslipidemia Essential (primary) hypertension Gallstones Gout Surgical History Surgical History History of cataract surgery History of cholecystectomy History of endoscopic retrograde cholangiopancreatography (09/2011) With removal obstructing biliary stone, biliary sphincterotomy and stent placement. History of esophagogastroduodenoscopy Family History Family History Father Coronary artery disease Social History Social History (Updated 11/24/21 @ 20:33 by Nai Claire PA-C) Social History: Surrogate decision maker: Neil Ferrell, son. Code status: Full code. Smoking status: Former smoker Tobacco type: cigarettes Second hand tobacco smoke exposure: No Additional
--- NOTE | 2021-11-27 10:19 | PCPTNOTE ---
The patient treatment was not able to be completed this AM due to patient being out of the room for a colonoscopy. Will plan to continue treatment per plan of care.
[2021-11-27] MEDS: LACTATED RINGERS 1,000 ML 150 ML IV CONT (10:23)
--- NOTE | 2021-11-27 15:22 | PM.DS ---
DS: Admitting Diagnosis Discharge Date 11/27/2021 Admitting Diagnosis GI bleed DS: Discharge Diagnosis Discharge Diagnosis (1) Rectal bleeding: Code(s): K62.5 - Hemorrhage of anus and rectum Status: Acute Assessment and Plan: Patient reports novel having rectal bleeding in the past however it is noted that he had a colonoscopy in November 2012 for evaluation of rectal bleeding, found to have extensive diverticulosis and internal hemorrhoids. CT of the abdomen and pelvis did not show any signs of colitis, diverticulitis, or findings concerning for ischemic colitis. For now we will continue to monitor the patient closely and follow his hemoglobin and hematocrit. Dr. Tate has been consulted and his input is appreciated. With acute bleeding he was transfused 2 unit of PRBC 11/24/2021 H&H is stable Status post colonoscopy with no signs of bleeding had diverticulosis and internal hemorrhoids. H&H remains stable (2) Essential (primary) hypertension: Code(s): I10 - Essential (primary) hypertension Status: Acute Assessment and Plan: Blood pressures were reviewed and initially they were in the upper 80s systolic but have progressively increased as the day has gone on. We will review and resume his antihypertensives as appropriate. Continue to monitor closely. Resume at discharge (3) Diarrhea: Code(s): R19.7 - Diarrhea, unspecified Status: Acute Assessment and Plan: Send stool culture which came back negative so far diarrhea has already resolved DS: Summary Hospital Course Hospital Course: See above Time Spent with Patient Time attestation: Total time spent providing and/or coordinating discharge services: 40 minutes Exam Narrative: General: Well-developed, nontoxic-appearing elderly male. HEENT: PERRL, EOMI. Sclerae anicteric. Oral mucosa moist. Oropharynx clear. Neck: Supple. Respiratory: Lungs are clear to auscultation bilaterally. Cardiovascular: Regular rate and rhythm with S1-S2. Gastrointestinal: Abdomen is soft, protuberant, and nontender with positive bowel sounds. No guarding or rebound tenderness. Skin: Warm and dry. No rash or lesions on limited exam. Extremities: No cyanosis or clubbing. No edema. Radial and pedal pulses intact. Neurological: Alert. Cranial nerves 2-12 are grossly intact. No gross focal deficits to casual conversation. Psychiatric: Pleasant and cooperative with normal mood and affect. Judgment and insight intact. DS: Data Data Completed and Pending Labs on day of discharge: Labs from last 24 hours 11/27/21 11/27/21 08:52 08:52 WBC 6.8 RBC 3.96 L Hgb 13.0 L Hct 37.9 L MCV 95.7 MCH 32.8 MCHC 34.3 RDW 12.9 Plt Count 149 L MPV 10.3 Immature Gran % (Auto) 0.4 Neut % (Auto) 66.5 Lymph % (Auto) 15.5 L [place] % (Auto) 8.4 Eos % (Auto) 8.3 H Baso % (Auto) 0.9 Lymph # (Auto) 1.05 [place] # (Auto) 0.6 Eos # (Auto) 0.6 H Baso # (Auto) 0.1 Abs Immat Gran (auto) 0.03 Absolute Neuts (auto) 4.5 Absolute Nucleated RBC 0.0 Nucleated RBC % 0.0 Sodium 131 L Potassium 3.3 L Chloride 105 Carbon Dioxide 24 Anion Gap 2 L BUN 7 L D Creatinine 0.70 Estim Creat Clear Calc 73 Estimated GFR > 60 Glucose 109 Calcium 8.2 L Magnesium 2.1 Total Bilirubin 1.8 H AST 29 ALT 16 Alkaline Phosphatase 43 Total Protein 6.0 L Albumin 3.0 L Procedures/Treatments: Colonoscopy 11/27/2021 Diverticulosis without perforation or abscess without bleeding Internal hemorrhoids Imaging Radiologist's impression: ITS Impressions Abdomen/Pelvis CT 11/24/21 08:09 IMPRESSION: 1. Right inguinal hernia containing nonobstructed small bowel. 2. Prominent fat in left inguinal canal that may be a recurrent inguinal hernia or the normal postoperative appearance. 3. New small nodules in the lower lobes of the lungs, likely infection. Discharge Plan
--- NOTE | 2021-11-28 08:37 | P.PNAN_ITS ---
Anes - Prog Note Post-Op Date/Time: 11/28/21 08:37 Cardiovascular status: normal Respiratory status: normal Airway patency: baseline Mental status: baseline Post-Op hydration status: normal Vital Signs: Last Vital Signs Temp 97.6 F 11/27/21 14:00 Pulse 112 H 11/27/21 16:04 Resp 18 11/27/21 14:00 BP 131/53 L 11/27/21 14:00 Pulse Ox 100 11/27/21 14:00 Pain Score (VAS): 0/10 Laboratory Tests 11/27/21 08:52 11/27/21 08:52 11/27/21 11/27/21 08:52 08:52 WBC 6.8 RBC 3.96 L Hgb 13.0 L Hct 37.9 L MCV 95.7 MCH 32.8 MCHC 34.3 RDW 12.9 Plt Count 149 L MPV 10.3 Immature Gran % (Auto) 0.4 Neut % (Auto) 66.5 Lymph % (Auto) 15.5 L [place] % (Auto) 8.4 Eos % (Auto) 8.3 H Baso % (Auto) 0.9 Lymph # (Auto) 1.05 [place] # (Auto) 0.6 Eos # (Auto) 0.6 H Baso # (Auto) 0.1 Abs Immat Gran (auto) 0.03 Absolute Neuts (auto) 4.5 Absolute Nucleated RBC 0.0 Nucleated RBC % 0.0 Sodium 131 L Potassium 3.3 L Chloride 105 Carbon Dioxide 24 Anion Gap 2 L BUN 7 L D Creatinine 0.70 Estim Creat Clear Calc 73 Estimated GFR > 60 Glucose 109 Calcium 8.2 L Magnesium 2.1 Total Bilirubin 1.8 H AST 29 ALT 16 Alkaline Phosphatase 43 Total Protein 6.0 L Albumin 3.0 L Microbiology 11/25/21 19:57 Stool Escherichia coli Shiga Toxins - Final 11/25/21 19:57 Stool Salmonella/Shigella Culture - Final 11/25/21 19:57 Stool Campylobacter Antigen Assay - Final 11/25/21 19:57 Stool Cryptosporidium Exam - Final 11/25/21 19:57 Stool Giardia Antigen (JOSELINE) - Final Post-procedural complaints: none Patient Feedback: Patient satisfied with anesthetic care. Other Findings: Per report
== END 2021-11-27 18:16 | disposition home or self-care (01) | DRG 379 ==
LOC: ANHED 08:44 → ANHICU 11:10 → ANH2MED 11-27 08:13 → ANHIMU 11-29 11:47
PROVIDERS: Internal Medicine Gastroenterology; Physician Assistant; Admitting Provider Internal Medicine; Emergency Provider Emergency Medicine; PCP Internal Medicine; Visit Provider Internal Medicine
PROC: 0DJD8ZZ Inspection of Lower Intestinal Tract, Via Natural or Artificial Opening Endoscopic (ICD-10-PCS; CPT 45378; principal; 2021-11-27 14:15)
DX: K62.5 Hemorrhage of anus and rectum (principal); K57.90 Diverticulosis of intestine, part unspecified, without perforation or abscess without bleeding; K64.8 Other hemorrhoids; I10 Essential (primary) hypertension; R00.0 Tachycardia, unspecified; Z20.822 Contact with and (suspected) exposure to COVID-19; Z86.718 Personal history of other venous thrombosis and embolism; Z90.49 Acquired absence of other specified parts of digestive tract
CPT/HCPCS: 36415; 36430; 74177; 80048; 80053; 82274; 83605; 83690; 83735; 84145; 85014; 85018; 85025; 85027; 85055; 85610; 85730; 86140; 86850; 86900; 86901; 86920; 87045; 87177; 87209; 87269; 87272; 87427; 87493; 89055; 93005; 96360; 96361; 96372; 97161; 97165; 99285; A9270; C9803; J0500; J2704; J7030; J7120; P9016; Q9967; U0003; U0005

== ENCOUNTER 2022-02-26 10:10 | Inpatient (IN) | payer MEDICARE, SELFPAY ==
[2022-02-26] VITALS (18 sets, daily range): BP systolic 144–170; BP diastolic 54–84; PULSE 78–111; RESP 12–22; TEMP 36.8–37.3; O2SAT 96–100; BMI 25.9
--- NOTE | ~2022-02-26 | CT_ITS ---
EXAMINATION: CT abdomen pelvis w con INDICATION: Rectal bleeding TECHNIQUE: Computed tomographic images of the abdomen and pelvis were obtained after the administrati on of 100 cc of Omnipaque 300 intravenous contrast. The dose-length product (DLP) was 647.25 mGy-cm. Automated exposure control and iterative reconstruction technique were employed. COMPARISON: 11/24/2021 FINDINGS: There are a few scattered nodules of the visualized lung bases. The heart size is normal. T he gallbladder is surgically absent. There is mild chronic pneumobilia. The liver, spleen, pancreas, and adrenal glands are normal. The kidneys are unremarkable. No pathologically enlarged abdominal or pelvic lymph nodes are identified. There is calcified atherosclerosis of the aorta and many of the ot her arteries. Colonic diverticulosis is present without evidence of diverticulitis. There is no free intraperitoneal gas or evidence of bowel obstruction. There are bilateral inguinal hernias. The right inguinal hernia contains a short segment of nonobstructed small bowel. A left inguinal hernia contai souleymane a short segment of nonobstructed sigmoid colon. There is severe lumbar spondylosis. IMPRESSION: 1. No CT correlate for the patient's symptoms. 2. Bilateral inguinal hernias containing small bowel in the right and large bowel in the left. 3. Scattered small nodules of the visualized lung bases, likely infectious or inflammatory. Reviewed, dictated and finalized at location A. IMPRESSION: 1. No CT correlate for the patient's symptoms. 2. Bilateral inguinal hernias containing small bowel in the right and large bow el in the left. 3. Scattered small nodules of the visualized lung bases, likely infectious or i nflammatory.
--- NOTE | ~2022-02-26 | NM_ITS ---
EXAMINATION: NM GI bleeding DATE: 02/27/2022 15:43 INDICATION: Hematochezia TECHNIQUE: 25.4 mCi Tc 99m in vitro labeled red cells administered intravenously. Scintigraphic imag es of the abdomen were obtained through 41 minutes at which point the study was terminated at patient request. FINDINGS: No pattern of abnormal activity is seen in the abdomen or pelvis to suggest gastrointestina l hemorrhage. IMPRESSION: 1. No scintigraphic evidence for active gastrointestinal bleeding. Reviewed, dictated and finalized at location A.
--- NOTE | 2022-02-26 10:37 | ED.GENADULT ---
HPI - General Adult General Chief complaint: GI Bleed Stated complaint: bloody stool Time Seen by Provider: 02/26/22 10:25 History of Present Illness HPI narrative: Patient is a 81-year-old male with a history of diverticulosis here for evaluation of bright red blood per rectum for the past two days with some lightheadedness today. Patient states he had very similar symptoms when he was hospitalized 3 months ago for the same. During his hospitalization, he underwent colonoscopy, which revealed nonbleeding diverticulosis. He required 2 units of packed red blood cells during the stay. He has not had another episode of bleeding since discharge and has been otherwise feeling well. He does not take any blood thinners. No abdominal pain, syncope, diarrhea, constipation. Does note he has a history of fluid retention and his legs are no more edematous than usual. Related Data Home Medications Medication Instructions Recorded Confirmed garlic 1 tablet PO DAILY 02/26/22 02/26/22 magnesium 200 mg PO WEEKLY 02/26/22 02/26/22 Allergies Allergy/AdvReac Type Severity Reaction Status Date / Time No Known Drug Allergies Allergy Unknown Unknown Verified 02/22/22 10:33 Review of Systems Review of Systems: Gen: Denies fevers or chills Eyes: Denies eye pain or visual change ENT: Denies congestion Respiratory: Denies shortness of breath or cough CV: Denies chest pain or palpitations GI: Reports blood per rectum. Denies abdominal pain nausea, emesis or diarrhea denies burning, urgency, frequency or hematuria Musculoskeletal: Denies back pain or muscle pain Neuro: Denies numbness, tingling, weakness or focal weakness Skin: Denies rash Except as documented, all other systems reviewed and negative All systems reviewed & are unremarkable except as noted in HPI and below [facility] Past Medical History Medical History Ascending cholangitis (07/2014) Clavicle fracture Deep venous thrombosis Dyslipidemia Essential (primary) hypertension Gallstones Gout Surgical History Surgical History History of cataract surgery History of cholecystectomy History of endoscopic retrograde cholangiopancreatography (09/2011) With removal obstructing biliary stone, biliary sphincterotomy and stent placement. History of esophagogastroduodenoscopy Family History Family History Father Coronary artery disease Social History Social History Social History: Surrogate decision maker: Neil Ferrell, son. Code status: Full code. Smoking packs per day: 3 Smoking cigarettes per day: 60.0 Years smoked: 37 Smoking pack-years: 111.00 Smoking status: Former smoker Tobacco type: cigarettes Second hand tobacco smoke exposure: No Additional smoking assessment comments: Quit in the 1994.. Alcohol intake: current Drinks per week: 15 Alcohol use details: 4-5 beers most nights of the week. Substance use: never Substance use type: does not use Additional living arrangements comments: . Lives alone in [place]. Additional occupation/education comments: Retired. Spiritual care concerns: No Exam Narrative: APPEARANCE: Well appearing, no pain in distress, well-nourished. Head: normocephalic and atraumatic. EYES: PERRLA/EOMI, conjunctivae clear NOSE: No nasal drainage EARS: External ear normal in appearance THROAT: Oropharynx is clear. Mucous membranes are moist. NECK: Supple. No adenopathy, no masses. RESPIRATORY: Airway patent, respirations nonlabored. Clear to auscultation bilaterally, no rales, rhonchi, wheezing. CARDIOVASCULAR: Regular rate and rhythm without murmurs, rubs, or gallops. ABDOMINAL: Normoactive bowel sounds. Soft, nontender, nondistended. No rebound tenderness or guarding. : Bright re
[2022-02-26 10:57] LABS: Basophils Percent Auto 0.5 % (0.2-1.2); Eosinophils Absolute Auto 0.2 K/mm3 (0-0.3); Eosinophils Percent Auto 1.7 % (0-4.4); Hematocrit 44.5 % (42.0-52.0); Hemoglobin 14.9 g/dL (14.0-18.0); Immature Granulocyte Absolute 0.06 K/mm3 (0.00-0.031); Immature Granulocyte Percent A 0.7 % (0-0.5); Lymphocytes Absolute Auto 0.84 K/mm3 (0.9-3.2); Lymphocytes Percent Auto 9.7 % (18.3-44.2); Mean Corpuscular HGB Conc 33.5 g/dl (32-36); Mean Corpuscular Hemoglobin 31.8 pg (26-34); Mean Corpuscular Volume 95.1 fl (80-100); Mean Platelet Volume 9.9 fl (7.4-10.4); Monocytes Absolute Auto 0.6 K/mm3 (0.1-0.6); Monocytes Percent Auto 7.3 % (2.6-8.5); Neutrophils Absolute Auto 6.9 K/mm3 (1.3-6.7); Neutrophils Percent Auto 80.1 % (45.5-73.1); Platelet Count Result 199 k/mm3 (150-375); Red Blood Count 4.68 M/mm3 (4.6-6.20); Red Cell Distribution Width 12.9 % (11.5-14.5); White Blood Count 8.6 K/mm3 (4.5-10.0)
[2022-02-26 11:07] LABS: Prothrombin Time 12.6 Seconds (11.1-14.7)
[2022-02-26 11:08] LABS: Partial Thromboplastin Time 26.9 SECONDS (22.3-36.8)
[2022-02-26 11:25] LABS: Alanine Aminotransferase 18 U/L (6-50); Albumin Level 4.1 g/dL (3.5-5.1); Alkaline Phosphatase 78 U/L (38-126); Anion Gap 8 mmol/L (8-16); Aspartate Amino Transferase 35 U/L (17-59); Bilirubin,Total 1.4 mg/dL (0.2-1.3); Blood Urea Nitrogen 12 mg/dL (9-20); Calcium 8.9 mg/dL (8.4-10.2); Carbon Dioxide 27 mmol/L (22-30); Chloride 98 mmol/L (98-107); Estimated CRCL calculation 65 ml/min; Estimated Glomerular Filt Rate > 60; Glucose 101 mg/dL (65-110); Potassium 4.6 mmol/L (3.4-5.0); Sodium 133 mmol/L (137-145)
--- NOTE | 2022-02-26 11:35 | PC.NURSE ---
Pt taken to CT
--- NOTE | 2022-02-26 12:56 | WPDGICN ---
Assessment and Plan Assessment and plan (1) Acute GI bleeding: Code(s): K92.2 - Gastrointestinal hemorrhage, unspecified Status: Acute Assessment and Plan: This appears to be similar to his previous presentation at which time he was found to have what was thought to be diverticular bleed. Once more his bleeding is painless and relatively bright red. So far it does not. He will need transfusion. Will need to rehydrate him. He has a Hep-Lock but no IV fluids as of yet. (2) Tachycardia: Code(s): R00.0 - Tachycardia, unspecified Status: Acute Assessment and Plan: This is likely due to his blood loss. During his previous hospitalization he had a pulses high as 130. Denies chest pain. He denies any history of heart disease . I discussed this case with the emergency room physician. We agreed that the patient should be hospitalized and rehydrated. (3) Gout: Qualifiers: Gout site: toe Gout etiology: unspecified cause Chronicity: chronic Laterality: unspecified laterality Presence of tophus: without tophus Qualified Code(s): M1A.9XX0 - Chronic gout, unspecified, without tophus (tophi) Code(s): M10.9 - Gout, unspecified Status: Acute Assessment and Plan: his gout has not bothered him particularly lately need not taking any anti-inflammatory medications GI Consult Note Consult date/time: 02/26/22 12:56 HPI: Siddharth Ferrell is a 81 year old male who presented to the emergency room this morning, brought by ambulance after he had stopped his primary care physician's office. He had begun bleeding yesterday. He states that this is very similar to the episode he had in November, painlessly passing a large amount of blood per rectum. He denies having any abdominal pain nausea vomiting. Has been no fever. He is not anticoagulated does not take aspirin. When he was hospitalized in November he received 2 units of blood, although his hemoglobin never did drop below 12.9. Now his hemoglobin is 14.6. He has had a CT scan was negative for anything that would suggest ischemic colitis, etc.. At times his colonoscopy in November, as was the case when I performed a colonoscopy 9 years ago, he has extensive diverticulosis throughout his colon. He states he was little lightheaded this morning. He had not become sweaty. he states that he had recently seen his primary care physician in the office and that he was told that his problem is 1 where in the bleeding will start suddenly and stop just suddenly making it difficult to find the precise location of bleeding. I told that that is exactly the case. Review of Systems Review of Systems: All systems reviewed & are unremarkable except as noted in HPI and below PMFSH Past Medical History Medical History Ascending cholangitis (07/2014) Clavicle fracture Deep venous thrombosis Dyslipidemia Essential (primary) hypertension Gallstones Gout Surgical History Surgical History History of cataract surgery History of cholecystectomy History of endoscopic retrograde cholangiopancreatography (09/2011) With removal obstructing biliary stone, biliary sphincterotomy and stent placement. History of esophagogastroduodenoscopy Family History Family History Father Coronary artery disease Social History Social History Social History: Surrogate decision maker: Neil Ferrell, son. Code status: Full code. Smoking status: Former smoker Tobacco type: cigarettes Second hand tobacco smoke exposure: No Additional smoking assessment comments: Quit in the 1994.. Alcohol intake: current Drinks per week: 22 Alcohol use details: 4-5 beers most nights of the week. Substance use: never Additional living arrangements
[2022-02-26] MEDS: SODIUM CHLORIDE 0.9% IV 1,000 ML 120 ML IV CONT (13:17)
--- NOTE | 2022-02-26 17:22 | ADMGEN ---
This patient, Siddharth Ferrell, was admitted to [facility] Surg Room 322-01 at 1625. Report per ENEIDA Stephen. Patient/family oriented to hospital policies and general routines including ID bracelet, bed and alarms, visiting hours, pain management, procedures, bathroom and other care routines, personal items, smoking policy, room service/diet, and visiting hours. Information on how to activate the Rapid Response Team has been discussed. Patient/Family are encouraged to report perceived risks to care and to ask questions if they do not understand what they are told or what they should do.
[2022-02-26 18:03] LABS: Hematocrit 43.5 % (42.0-52.0); Hemoglobin 14.6 g/dL (14.0-18.0)
--- NOTE | 2022-02-26 20:06 | PM.IMHP ---
H&P: HPI History of Present Illness Date/Time: Patient was placed observation status for expected length of stay less than 23 hours for management, will plan to re-evaluate tomorrow for improvement. 02/26/22 20:06 Chief Complaint: Bright red blood per rectum Narrative: Mr. Ferrell is an 81-year-old gentleman who presented emergency room with complaints of bright red blood per rectum. Patient had been admitted to the hospital in November of this year with similar complaints and he underwent colonoscopy which found diverticulosis. Patient did receive 1 unit of packed red blood cells during that hospital admission. Patient came in today stating that yesterday he noticed a large amount of bright red blood per rectum and then it stopped after having 1 bowel movement. Patient states he then since that time has had 5 bloody bowel movements and he feels that it is nothing but blood with no solid material. Patient states he has not been eating because he does not 1 after go to the bathroom. Patient states he has been drinking water without any difficulty. Patient denies any nausea or vomiting. Patient denies any abdominal pain. Upon evaluation in emergency room patient was noted to be in sinus tachycardia. Patient denies any chest pain, shortness breast, lightheadedness, dizziness, syncopal, or near syncopal episodes. Patient has a known history of DVT, dyslipidemia, hypertension, and gout. Patient states he has been taking all medications at home without any difficulty. Review of Systems Review of Systems: A 12 point review of systems was completed patient all pertinent positive and negative per HPI the remainder are unremarkable. [facility] Past Medical History Medical History Ascending cholangitis (07/2014) Clavicle fracture Deep venous thrombosis Dyslipidemia Essential (primary) hypertension Gallstones Gout Surgical History Surgical History History of cataract surgery History of cholecystectomy History of endoscopic retrograde cholangiopancreatography (09/2011) With removal obstructing biliary stone, biliary sphincterotomy and stent placement. History of esophagogastroduodenoscopy Family History Family History Father Coronary artery disease Social History Social History Social History: Surrogate decision maker: Neil Ferrell, son. Code status: Full code. Smoking packs per day: 3 Smoking cigarettes per day: 60.0 Years smoked: 37 Smoking pack-years: 111.00 Smoking status: Former smoker Tobacco type: cigarettes Second hand tobacco smoke exposure: No Additional smoking assessment comments: Quit in the 1994.. Alcohol intake: current Drinks per week: 15 Alcohol use details: 4-5 beers most nights of the week. Substance use: never Substance use type: does not use Additional living arrangements comments: . Lives alone in [place]. Additional occupation/education comments: Retired. Spiritual care concerns: No Meds Home Medications and Allergies Home Medications Medication Instructions Recorded Confirmed Type amlodipine 5 mg tablet 5 mg PO DAILY #90 tablet 05/11/21 02/26/22 Rx allopurinol 100 mg tablet 100 mg PO DAILY #90 tablet 11/09/21 02/26/22 Rx garlic 1 tablet PO DAILY 02/26/22 02/26/22 History magnesium 200 mg PO WEEKLY 02/26/22 02/26/22 History Allergies Allergy/AdvReac Type Severity Reaction Status Date / Time No Known Drug Allergies Allergy Unknown Unknown Verified 02/22/22 10:33 Vital Signs Vital Signs - 24 hr 02/26/22 10:15 02/26/22 10:30 02/26/22 10:39 Temperature 36.8 C Pulse Rate 105 H 111 H 108 H Respiratory Rate 18 17 12 Blood Pressure 158/54 H 170/77 H Pulse Oximetry 100 99 98 02/26/22 10:45 02/26/22 10:46 02/26/22 11:04 Tem
[2022-02-26] MEDS: MORPHINE SULFATE (*CRX) 2 MG/ML INJ IV PUSH (21:22)
[2022-02-26] MEDS: SODIUM CHLORIDE 0.9% IV 1,000 ML 100 ML IV CONT (21:23)
[2022-02-26 21:29] LABS: Hematocrit 40.2 % (42.0-52.0); Hemoglobin 13.3 g/dL (14.0-18.0)
[2022-02-27] MEDS: MORPHINE SULFATE (*CRX) 2 MG/ML INJ IV PUSH ×3 (02:19→21:28)
[2022-02-27 03:03] LABS: SARS-CoV-2 RNA PCR Negative
[2022-02-27 06:00] VITALS: BP 162/80; PULSE 98; RESP 20; TEMP 36.6; O2SAT 96
[2022-02-27 06:05] LABS: Hematocrit 36.2 % (42.0-52.0); Hemoglobin 12.1 g/dL (14.0-18.0)
[2022-02-27 06:15] LABS: Anion Gap 3 mmol/L (8-16); Blood Urea Nitrogen 10 mg/dL (9-20); Calcium 7.7 mg/dL (8.4-10.2); Carbon Dioxide 27 mmol/L (22-30); Chloride 104 mmol/L (98-107); Estimated CRCL calculation 65 ml/min; Estimated Glomerular Filt Rate > 60; Glucose 85 mg/dL (65-110); Potassium 3.6 mmol/L (3.4-5.0); Sodium 134 mmol/L (137-145)
--- NOTE | 2022-02-27 07:05 | WPDGIPROGNO ---
Progress Note: A&P Assessment and Plan (1) Rectal bleeding: Code(s): K62.5 - Hemorrhage of anus and rectum Status: Acute Assessment and Plan: he has had 1 episode of bloody stool since last night but it was more dark, almost black at the onset. His hemoglobin, though it has dropped, is 12.1. will advance his diet to full liquids. He states he is not up to eating solid food as of yet. (2) Tachycardia: Code(s): R00.0 - Tachycardia, unspecified Status: Acute Assessment and Plan: Resolved with rehydration (3) Inguinal hernia: Code(s): K40.90 - Unilateral inguinal hernia, without obstruction or gangrene, not specified as recurrent Status: Acute Assessment and Plan: this was reducible. I advised him not to strain when he feels the urge to have a bowel movement. (4) Gout: Qualifiers: Gout site: toe Gout etiology: unspecified cause Chronicity: chronic Laterality: unspecified laterality Presence of tophus: without tophus Qualified Code(s): M1A.9XX0 - Chronic gout, unspecified, without tophus (tophi) Code(s): M10.9 - Gout, unspecified Status: Acute Assessment and Plan: No current symptoms. Again he states he does not use any NSAIDs or aspirin. He does take garlic tablets Subjective Date/time seen: 02/27/22 07:05 the patient states that he had 1 bowel movement early this morning. He was at 1st almost black but rather towards the end. He felt himself straining the past that stool then developed a pain in the lower right quadrant. He has asked for a pain pill he states that he is not hungry. We discussed advancing his diet. He states that he is in no hurry to go home. Review of Systems Review of Systems: All systems reviewed & are unremarkable except as noted in HPI and below Exam Const: General: alert Orientation/consciousness: patient oriented x3 Resp: Auscultation: clear to auscultation bilaterally Cardio: Rhythm: regular rhythm GI: GI Palp: Yes Soft to palpation, No Tenderness to palpation present (GI) and Yes Hernia present ( There is a right inguinal hernia) Neuro: General: patient oriented x3 Objective Data Vital Signs Vital Signs: Vital Signs - 24 hr 02/26/22 10:15 02/26/22 10:30 02/26/22 10:39 Temperature 36.8 C Pulse Rate 105 H 111 H 108 H Respiratory Rate 18 17 12 Blood Pressure 158/54 H 170/77 H Pulse Oximetry 100 99 98 02/26/22 10:45 02/26/22 10:46 02/26/22 11:04 Temperature Pulse Rate 101 H 107 H 106 H Respiratory Rate 14 15 22 H Blood Pressure 153/70 H Pulse Oximetry 98 98 98 02/26/22 11:15 02/26/22 11:16 02/26/22 12:26 Temperature Pulse Rate 98 100 109 H Respiratory Rate 13 17 12 Blood Pressure 150/71 H Pulse Oximetry 98 97 96 02/26/22 12:30 02/26/22 12:31 02/26/22 12:45 Temperature Pulse Rate 105 H 106 H 105 H Respiratory Rate 14 14 17 Blood Pressure 167/70 H Pulse Oximetry 98 98 99 02/26/22 12:46 02/26/22 13:55 02/26/22 15:13 Temperature Pulse Rate 105 H 96 94 Respiratory Rate 16 19 20 Blood Pressure 151/81 H 150/74 H 144/84 H Pulse Oximetry 98 99 98 02/26/22 16:00 02/26/22 20:44 02/26/22 22:00 Temperature 37.3 C Pulse Rate 78 103 H Respiratory Rate 18 18 Blood Pressure 146/66 H 150/74 H Pulse Oximetry 98 97 96 02/27/22 06:00 Temperature 36.6 C Pulse Rate 98 Respiratory Rate 20 Blood Pressure 162/80 H Pulse Oximetry 96 Intake/Output Intake/Output: Intake & Output 02/24/22 02/25/22 02/26/22 02/27/22 23:59 23:59 23:59 23:59 Intake Total 0 Balance 0 Meds/Results Medications: Active Medications Generic Name Dose Route Start Last Admin Trade Name Freq PRN Reason Stop Dose Admin Acetaminophen 650 mg 02/26/22 21:02 Acetaminophen 325 Mg Tablet PO Q6H PRN Mild Pain (1-3) or Fever Sodium Chloride 1,000 mls @ 100 mls/hr 02/26/22 21:05 02/26/22 21:23 Normal Saline Iv IV CONT 100 m
[2022-02-27] MEDS: SODIUM CHLORIDE 0.9% IV 1,000 ML 100 ML IV CONT ×2 (07:53→19:47)
[2022-02-27 10:14] VITALS: BP 143/62; PULSE 87; O2SAT 87
[2022-02-27 10:46] LABS: Hematocrit 40.6 % (42.0-52.0); Hemoglobin 13.1 g/dL (14.0-18.0)
--- NOTE | 2022-02-27 11:37 | PM.IMPN ---
Progress Note: A&P Assessment and Plan (1) Rectal bleeding: Code(s): K62.5 - Hemorrhage of anus and rectum Status: Acute Assessment and Plan: -patient with RN visualized hematochezia this morning x5 -patient endorses lower abdominal cramping. -GI has been consulted and is being updated as to the increasing patient's stools. -continue to monitor H&H Q 6. Currently remaining stable. -continue IV fluids of normal saline at 100 mL/hour. -pain meds and antiemetics as needed. -monitor vitals and labs. (2) HTN (hypertension): Qualifiers: Hypertension type: primary hypertension Qualified Code(s): I10 - Essential (primary) hypertension Code(s): I10 - Essential (primary) hypertension Status: Acute Assessment and Plan: - Suboptimal control currently as pt.is having pain distress. - Continue to monitor VS. (3) Tachycardia: Code(s): R00.0 - Tachycardia, unspecified Status: Resolved Assessment and Plan: Resolved Time Spent With Patient Time with patient: 15 - 25 minutes Subjective Date/time seen: 02/27/22 1030 This pt. is examined at the bedside in interval assessment today after being admitted to the hospital with concerns of GI bleed. He was evaluated by GI this AM and his diet was advanced to a full liquid, but the patient continues to have bloody stools. He has reportedly had 5 this morning. RN is asked to notify GI that he is still having hematochezia. His latest hemoglobin was 13.1. We are waiting to hear more from GI for plan of care. Patient does endorse that he has some abdominal pain in the lower quadrants that he describes as a cramping and is constant. He denies any nausea and/or vomiting but endorses that he cannot eat. He has no chest pain and/or dyspnea. Review of Systems Review of Systems: All systems reviewed & are unremarkable except as noted in HPI and below Exam Const: General: uncomfortable Other: Appears uncomfortable due to cramping of lower abdomen. HENMT: Mouth: Yes moist mucous membranes Eyes: Sclera: sclerae normal Neck: Neck: supple and no JVD Lymphatic: lymphadenopathy not noted Resp: Effort & Inspection: normal respiratory effort Auscultation: clear to auscultation bilaterally Cardio: Rate: regular rate Rhythm: regular rhythm GI: GI Palp: Yes Soft to palpation and Yes Tenderness to palpation present (GI) Auscultation: normal bowel sounds Skin: General skin exam: normal color and no rashes or lesions noted Neuro: Cognition (Neuro): normal cognition Speech: normal speech Motor exam (neuro): Normal motor muscle tone present throughout Extrem: General: normal to inspection Psych: Mental Status: mental status grossly normal Affect: normal affect Objective Data Vital Signs Vital Signs: Vital Signs - 24 hr 02/26/22 12:26 02/26/22 12:30 02/26/22 12:31 Temperature Pulse Rate 109 H 105 H 106 H Respiratory Rate 12 14 14 Blood Pressure 167/70 H Pulse Oximetry 96 98 98 02/26/22 12:45 02/26/22 12:46 02/26/22 13:55 Temperature Pulse Rate 105 H 105 H 96 Respiratory Rate 17 16 19 Blood Pressure 151/81 H 150/74 H Pulse Oximetry 99 98 99 02/26/22 15:13 02/26/22 16:00 02/26/22 20:44 Temperature Pulse Rate 94 78 Respiratory Rate 20 18 Blood Pressure 144/84 H 146/66 H Pulse Oximetry 98 98 97 02/26/22 22:00 02/27/22 06:00 02/27/22 10:14 Temperature 99.2 F 97.9 F Pulse Rate 103 H 98 87 Respiratory Rate 18 20 Blood Pressure 150/74 H 162/80 H 143/62 H Pulse Oximetry 96 96 87 L Intake/Output Intake/Output: Intake & Output 02/24/22 02/25/22 02/26/22 02/27/22 23:59 23:59 23:59 23:59 Intake Total 0 1360 Balance 0 1360 Meds/Results Medications: Active Medications Generic Name Dose Route Start Last Admin Trade Name Freq PRN Reason Stop Dose Admin Acetaminophen 650 mg 02/26/22 21:02 Acetaminophen 325 Mg Tablet PO Q6H PRN Mild Pain (1-3) or Fever
[2022-02-27 14:00] VITALS: BP 137/67; PULSE 80; RESP 14; TEMP 36.9; O2SAT 98
[2022-02-27 17:03] LABS: Hemoglobin 12.3 g/dL (14.0-18.0)
[2022-02-27 22:00] VITALS: BP 165/85; PULSE 97; RESP 18; TEMP 36.6; O2SAT 100
[2022-02-28] VITALS (9 sets, daily range): BP systolic 103–175; BP diastolic 59–86; PULSE 85–104; RESP 14–23; TEMP 36–37.1; O2SAT 97–100
[2022-02-28] MEDS: SODIUM CHLORIDE 0.9% IV 1,000 ML 100 ML IV CONT (05:13)
[2022-02-28 06:41] LABS: Basophils Percent Auto 0.6 % (0.2-1.2); Eosinophils Absolute Auto 0.3 K/mm3 (0-0.3); Eosinophils Percent Auto 3.9 % (0-4.4); Hematocrit 37.8 % (42.0-52.0); Hemoglobin 12.2 g/dL (14.0-18.0); Immature Granulocyte Absolute 0.03 K/mm3 (0.00-0.031); Immature Granulocyte Percent A 0.4 % (0-0.5); Lymphocytes Absolute Auto 0.84 K/mm3 (0.9-3.2); Lymphocytes Percent Auto 12.2 % (18.3-44.2); Mean Corpuscular HGB Conc 32.3 g/dl (32-36); Mean Corpuscular Hemoglobin 32.3 pg (26-34); Mean Platelet Volume 10.4 fl (7.4-10.4); Monocytes Absolute Auto 0.6 K/mm3 (0.1-0.6); Monocytes Percent Auto 9.3 % (2.6-8.5); Neutrophils Absolute Auto 5.1 K/mm3 (1.3-6.7); Neutrophils Percent Auto 73.6 % (45.5-73.1); Platelet Count Result 164 k/mm3 (150-375); Red Blood Count 3.78 M/mm3 (4.6-6.20); Red Cell Distribution Width 12.9 % (11.5-14.5); White Blood Count 6.9 K/mm3 (4.5-10.0)
[2022-02-28 06:47] LABS: Alanine Aminotransferase 13 U/L (6-50); Albumin Level 3.2 g/dL (3.5-5.1); Alkaline Phosphatase 59 U/L (38-126); Anion Gap 4 mmol/L (8-16); Aspartate Amino Transferase 27 U/L (17-59); Bilirubin,Total 2.2 mg/dL (0.2-1.3); Blood Urea Nitrogen 7 mg/dL (9-20); Calcium 7.8 mg/dL (8.4-10.2); Carbon Dioxide 27 mmol/L (22-30); Chloride 103 mmol/L (98-107); Estimated CRCL calculation 73 ml/min; Estimated Glomerular Filt Rate > 60; Glucose 74 mg/dL (65-110); Potassium 3.7 mmol/L (3.4-5.0); Sodium 134 mmol/L (137-145)
--- NOTE | 2022-02-28 09:15 | WPDANESEPPF ---
Anes - Initial Pre Proc Eval Procedure: Operation Date: 02/28/22 10:15 Proposed Procedures p Flexible Sigmoidoscopy - Law Tate MD Date/Time: 02/28/22 09:15 Surgeon: Mary Ann Brothers PA-C Pre Op Diagnosis: GI Bleed Patient Data Age: 81 Gender: M Height: 1.8 m Weight: 84.5 kg Last Vital Signs Temp 96.8 F L 02/28/22 08:35 Pulse 93 02/28/22 08:35 Resp 18 02/28/22 08:35 BP 175/78 H 02/28/22 08:35 Pulse Ox 100 02/28/22 08:35 Allergies Allergy/AdvReac Type Severity Reaction Status Date / Time No Known Drug Allergies Allergy Unknown Unknown Verified 02/28/22 08:51 Home Medications Medication Instructions Recorded Confirmed Type amlodipine 5 mg tablet 5 mg PO DAILY #90 tablet 05/11/21 02/28/22 Rx allopurinol 100 mg tablet 100 mg PO DAILY #90 tablet 11/09/21 02/28/22 Rx garlic 1 tablet PO DAILY 02/26/22 02/28/22 History magnesium 200 mg PO WEEKLY 02/26/22 02/28/22 History Laboratory Tests 02/27/22 02/27/22 02/28/22 10:37 16:50 06:13 WBC 6.9 K/mm3 K/mm3 (4.5-10.0) RBC 3.78 M/mm3 L M/mm3 (4.6-6.20) Hgb 13.1 g/dL L g/dL 12.3 g/dL L g/dL 12.2 g/dL L g/dL (14.0-18.0) (14.0-18.0) (14.0-18.0) Hct 40.6 % L % 38.0 % L % 37.8 % L % (42.0-52.0) (42.0-52.0) (42.0-52.0) MCV 100.0 fl D fl (80-100) MCH 32.3 pg pg (26-34) MCHC 32.3 g/dl g/dl (32-36) RDW 12.9 % % (11.5-14.5) Plt Count 164 k/mm3 k/mm3 (150-375) MPV 10.4 fl fl (7.4-10.4) Immature Gran % (Auto) 0.4 % % (0-0.5) Neut % (Auto) 73.6 % H % (45.5-73.1) Lymph % (Auto) 12.2 % L % (18.3-44.2) Hancock % (Auto) 9.3 % H % (2.6-8.5) Eos % (Auto) 3.9 % % (0-4.4) Baso % (Auto) 0.6 % % (0.2-1.2) Lymph # (Auto) 0.84 K/mm3 L K/mm3 (0.9-3.2) Hancock # (Auto) 0.6 K/mm3 K/mm3 (0.1-0.6) Eos # (Auto) 0.3 K/mm3 K/mm3 (0-0.3) Baso # (Auto) 0.0 K/mm3 K/mm3 (0.0-0.1) Abs Immat Gran (auto) 0.03 K/mm3 K/mm3 (0.00-0.031) Absolute Neuts (auto) 5.1 K/mm3 K/mm3 (1.3-6.7) Absolute Nucleated RBC 0.0 K/mm3 K/mm3 (0.0-0.012) Nucleated RBC % 0.0 % % (0.0-0.2) Sodium Potassium Chloride Carbon Dioxide Anion Gap BUN Creatinine Estim Creat Clear Calc Estimated GFR Glucose Calcium Magnesium Total Bilirubin AST ALT Alkaline Phosphatase Total Protein Albumin 02/28/22 06:13 WBC RBC Hgb Hct MCV MCH MCHC RDW Plt Count MPV Immature Gran % (Auto) Neut % (Auto) Lymph % (Auto) Hancock % (Auto) Eos % (Auto) Baso % (Auto) Lymph # (Auto) Hancock # (Auto) Eos # (Auto) Baso # (Auto) Abs Immat Gran (auto) Absolute Neuts (auto) Absolute Nucleated RBC Nucleated RBC % Sodium 134 mmol/L L mmol/L (137-145) Potassium 3.7 mmol/L mmol/L (3.4-5.0) Chloride 103 mmol/L mmol/L (98-107) Carbon Dioxide 27 mmol/L mmol/L (22-30) Anion Gap 4 mmol/L L mmol/L (8-16) BUN 7 mg/dL L mg/dL (9-20) Creatinine 0.70 mg/dL mg/dL (0.7-1.3) Estim Creat Clear Calc 73 ml/min ml/min Estimated GFR > 60 (59 - ) Glucose 74 mg/dL mg/dL (65-110) Calcium 7.8 mg/dL L mg/dL (8.4-10.2) Magnesium 2.0 mg/dL mg/dL (1.6-2.3) Total Bilirubin 2.2 mg/dL H mg/dL (0.2-1.3) AST 27 U/L U/L (17-59) ALT 13 U/L U/L (6-50) Alkaline Phosphatase 59 U/L U/L (38-126) Total Protein 6.0 g/dL L g/dL (6.3-8.2) Albumin 3.2 g/dL L g/dL (3.5-5.1) Patient hx anesthesia problems: none Family hx
[2022-02-28] MEDS: LACTATED RINGERS 1,000 ML 150 ML IV CONT (09:46)
--- NOTE | 2022-02-28 09:47 | WPDGIPROGNO ---
Progress Note: A&P Assessment and Plan (1) GI bleed: Qualifiers: GI bleed type/associated pathology: unspecified gastrointestinal hemorrhage type Qualified Code(s): K92.2 - Gastrointestinal hemorrhage, unspecified Code(s): K92.2 - Gastrointestinal hemorrhage, unspecified Status: Acute Assessment and Plan: his bleeding appears to have stopped. The blood present in the colon is very dark. Because I see blood all the way up through the distal transverse colon, I am assuming that was a proximal colon bleed. He does have diverticulosis throughout the colon as noted on his prior study a few weeks ago. Fortunately, there is no evidence of ischemic changes. I think we can advance his diet. I told the patient there is no guarantee that he will not bleed again. He does Not take aspirin or any NSAIDs, but he does take garlic with has anti-platelet effects and has been known to induce bleeding. Consequently he will need to discontinue that. Subjective Date/time seen: 02/28/22 09:47 He had no bleeding during the night. He had several stools yesterday that were bright red blood, concerning for persistent active bleeding. However his hemoglobin actually had increased. A tagged red blood cell scan that was done urgently was negative for any active bleeding. Today he states he only has gas pain and has passed quite a bit of gas Exam Const: General: alert Orientation/consciousness: patient oriented x3 Resp: Auscultation: clear to auscultation bilaterally Cardio: Rhythm: regular rhythm GI: GI Palp: Yes Soft to palpation and No Tenderness to palpation present (GI) Neuro: General: patient oriented x3 Objective Data Vital Signs Vital Signs: Vital Signs - 24 hr 02/27/22 10:14 02/27/22 14:00 02/27/22 22:00 Temperature 36.9 C 36.6 C Pulse Rate 87 80 97 Respiratory Rate 14 18 Blood Pressure 143/62 H 137/67 165/85 H Pulse Oximetry 87 L 98 100 02/28/22 06:00 02/28/22 08:35 Temperature 36.2 C L 36.0 C L Pulse Rate 104 H 93 Respiratory Rate 18 18 Blood Pressure 173/73 H 175/78 H Pulse Oximetry 97 100 Intake/Output Intake/Output: Intake & Output 02/25/22 02/26/22 02/27/22 02/28/22 23:59 23:59 23:59 23:59 Intake Total 0 2560 1100 Balance 0 2560 1100 Meds/Results Medications: Active Medications Generic Name Dose Route Start Last Admin Trade Name Freq PRN Reason Stop Dose Admin Acetaminophen 650 mg 02/26/22 21:02 Acetaminophen 325 Mg Tablet PO Q6H PRN Mild Pain (1-3) or Fever Allopurinol 100 mg 02/28/22 09:00 Allopurinol 100 Mg Tablet PO DAILY YOLANDA Amlodipine Besylate 5 mg 02/28/22 09:00 Amlodipine Besylate 5 Mg Tablet PO DAILY YOLANDA Sodium Chloride 1,000 mls @ 100 mls/hr 02/26/22 21:05 02/28/22 05:13 Normal Saline Iv IV CONT 100 mls/hr .Q10H YOLANDA Administration Lactated Ringer's 1,000 mls @ 150 mls/hr 02/28/22 08:55 02/28/22 09:46 Lr - Lactated Ringers Iv IV CONT 150 mls/hr .Q6H40M YOLANDA Infusion Magnesium Oxide 200 mg 03/02/22 09:00 Magnesium Oxide 200 Mg Tablet PO Fr@0900 YOLANDA Morphine Sulfate 2 mg 02/26/22 21:02 02/27/22 21:28 Morphine Sulfate (*Crx) 2 Mg/Ml Inj IV PUSH 2 mg Q4H PRN Administration Pain Rated 7-10 Ondansetron HCl 4 mg 02/26/22 21:02 Ondansetron Inj 4 Mg/2 Ml Vial IV PUSH Q6H PRN Nausea And Vomiting Radiology Results: ITS Impressions Abdomen/Pelvis CT 02/26/22 11:53 IMPRESSION: 1. No CT correlate for the patient's symptoms. 2. Bilateral inguinal hernias containing small bowel in the right and large bowel in the left. 3. Scattered small nodules of the visualized lung bases, likely infectious or inflammatory. GI Bleed Scan Nuclear Medicine 02/27/22 16:54 IMPRESSION: 1. No scintigraphic evidence for active gastrointestinal bleeding. Labs Labs: Laboratory Results - last 24 hr 02/27/22 02/27/22 02/28/22 10:37 16:5
[2022-02-28 10:29] LABS: Glucose Point of Care 74 mg/dl (65-105)
[2022-02-28 11:27] LABS: Glucose Point of Care 165 mg/dl (65-105)
[2022-02-28] MEDS: allopurinoL 100 MG TABLET PO (13:11)
[2022-02-28] MEDS: amLODIPine BESYLATE 5 MG TABLET PO (13:12)
--- NOTE | 2022-02-28 16:07 | PM.IMPN ---
Progress Note: A&P Assessment and Plan (1) Rectal bleeding: Code(s): K62.5 - Hemorrhage of anus and rectum Status: Acute Assessment and Plan: -RN visualized hematochezia x5 on 02/27/22 -continue to monitor H&H Q 6. Currently remaining stable. -GI has been consulted -Sigmoidoscopy report from today reviewed -dc IV fluids, tolerating full liquid diet, advancing to heart healthy tonight (2) HTN (hypertension): Qualifiers: Hypertension type: primary hypertension Qualified Code(s): I10 - Essential (primary) hypertension Code(s): I10 - Essential (primary) hypertension Status: Acute Assessment and Plan: -Suboptimal control currently -PO meds restarted -continue monitoring (3) Tachycardia: Code(s): R00.0 - Tachycardia, unspecified Status: Resolved Assessment and Plan: Resolved Subjective Date/time seen: 02/28/22 16:07 Interval history: 81 yo male w/ history of DVT, dyslipidemia, hypertension, and gout, admitted with bright red blood per rectum. Pt had sigmoidoscopy today. He states he has had one bright red bloody stool and one darker one since the procedure. He has no complaints otherwise. No N/V/abd pain. No cp/sob. Review of Systems Review of Systems: All systems reviewed & are unremarkable except as noted in HPI and below Exam Narrative: Constitutional: Patient is well-nourished in no acute distress. Patient is alert and oriented x3 HEENT: Moist mucous membranes. No scleral icterus. Neck: Supple Lungs: Lung sounds are clear to auscultation bilaterally. No accessory muscle use. No rhonchi, rales, or wheezes noted. Cardiovascular: Apical pulse is regular rate and rhythm. S1-S2 noted, no S3 or S4 noted. No gallops, murmurs, or rubs noted. Abdomen: Soft, nontender. No rebound or guarding. Extremities: No edema. Nontender. Skin: No rashes or lesions. Warm and dry. Skin is intact. Neurological: No focal neurological deficits. Cranial nerves II-XII grossly intact. Psychiatric: Cooperative, appropriate mood, and affect Objective Data Vital Signs Vital Signs: Vital Signs - 24 hr 02/27/22 22:00 02/28/22 06:00 02/28/22 07:55 Temperature 97.8 F 97.1 F L Pulse Rate 97 104 H Respiratory Rate 18 18 Blood Pressure 165/85 H 173/73 H 153/71 H Pulse Oximetry 100 97 02/28/22 08:35 02/28/22 09:46 02/28/22 09:56 Temperature 96.8 F L Pulse Rate 93 97 99 Respiratory Rate 18 23 H 14 Blood Pressure 175/78 H 103/86 114/86 Pulse Oximetry 100 98 98 02/28/22 10:06 02/28/22 13:12 02/28/22 14:00 Temperature 98.7 F Pulse Rate 92 88 85 Respiratory Rate 14 18 Blood Pressure 160/71 H 148/65 H 151/68 H Pulse Oximetry 99 98 99 Intake/Output Intake/Output: Intake & Output 02/25/22 02/26/22 02/27/22 02/28/22 23:59 23:59 23:59 23:59 Intake Total 0 2560 1860 Balance 0 2560 1860 Meds/Results Medications: Active Medications Generic Name Dose Route Start Last Admin Trade Name Freq PRN Reason Stop Dose Admin Acetaminophen 650 mg 02/26/22 21:02 Acetaminophen 325 Mg Tablet PO Q6H PRN Mild Pain (1-3) or Fever Allopurinol 100 mg 02/28/22 09:00 02/28/22 13:11 Allopurinol 100 Mg Tablet PO 100 mg DAILY YOLANDA Administration Amlodipine Besylate 5 mg 02/28/22 09:00 02/28/22 13:12 Amlodipine Besylate 5 Mg Tablet PO 5 mg DAILY YOLANDA Administration Sodium Chloride 1,000 mls @ 100 mls/hr 02/26/22 21:05 02/28/22 13:13 Normal Saline Iv IV CONT 0 mls/hr .Q10H YOLANAD Infusion Magnesium Oxide 200 mg 03/02/22 09:00 Magnesium Oxide 200 Mg Tablet PO Fr@0900 YOLANDA Morphine Sulfate 2 mg 02/26/22 21:02 02/27/22 21:28 Morphine Sulfate (*Crx) 2 Mg/Ml Inj IV PUSH 2 mg Q4H PRN Administration Pain Rated 7-10 Ondansetron HCl 4 mg 02/26/22 21:02 Ondansetron Inj 4 Mg/2 Ml Vial IV PUSH Q6H PRN Nausea And Vomiting Ra
[2022-03-01 06:00] VITALS: BP 138/56; PULSE 77; RESP 16; TEMP 36.4; O2SAT 97
[2022-03-01 07:16] LABS: Basophils Percent Auto 0.6 % (0.2-1.2); Eosinophils Absolute Auto 0.4 K/mm3 (0-0.3); Eosinophils Percent Auto 6.5 % (0-4.4); Hematocrit 35.6 % (42.0-52.0); Hemoglobin 11.7 g/dL (14.0-18.0); Immature Granulocyte Absolute 0.03 K/mm3 (0.00-0.031); Immature Granulocyte Percent A 0.5 % (0-0.5); Lymphocytes Percent Auto 12.6 % (18.3-44.2); Mean Corpuscular HGB Conc 32.9 g/dl (32-36); Mean Corpuscular Hemoglobin 32.6 pg (26-34); Mean Corpuscular Volume 99.2 fl (80-100); Mean Platelet Volume 10.8 fl (7.4-10.4); Monocytes Absolute Auto 0.7 K/mm3 (0.1-0.6); Monocytes Percent Auto 11.4 % (2.6-8.5); Neutrophils Absolute Auto 4.3 K/mm3 (1.3-6.7); Neutrophils Percent Auto 68.4 % (45.5-73.1); Platelet Count Result 162 k/mm3 (150-375); Red Blood Count 3.59 M/mm3 (4.6-6.20); Red Cell Distribution Width 12.9 % (11.5-14.5); White Blood Count 6.3 K/mm3 (4.5-10.0)
[2022-03-01 07:47] LABS: Alanine Aminotransferase 14 U/L (6-50); Alkaline Phosphatase 53 U/L (38-126); Anion Gap 1 mmol/L (8-16); Aspartate Amino Transferase 26 U/L (17-59); Bilirubin,Total 1.9 mg/dL (0.2-1.3); Blood Urea Nitrogen 6 mg/dL (9-20); Calcium 8.1 mg/dL (8.4-10.2); Carbon Dioxide 29 mmol/L (22-30); Chloride 101 mmol/L (98-107); Estimated CRCL calculation 73 ml/min; Estimated Glomerular Filt Rate > 60; Glucose 98 mg/dL (65-110); Potassium 3.4 mmol/L (3.4-5.0); Sodium 131 mmol/L (137-145)
[2022-03-01 08:00] VITALS: PULSE 77; RESP 16; O2SAT 97
[2022-03-01] MEDS: allopurinoL 100 MG TABLET PO (08:39)
[2022-03-01] MEDS: amLODIPine BESYLATE 5 MG TABLET PO (08:39)
--- NOTE | 2022-03-01 09:48 | PM.DS ---
DS: Admitting Diagnosis Discharge Date 03/01/22 Admitting Diagnosis rectal bleeding DS: Discharge Diagnosis Discharge Diagnosis (1) Rectal bleeding: Code(s): K62.5 - Hemorrhage of anus and rectum Status: Acute Assessment and Plan: -RN visualized hematochezia x5 on 02/27/22 -GI consulted -Sigmoidoscopy report reviewed -tolerating heart healthy diet -monitored H&H q6, remaining stable 11.7 today, will repeat CBC on Saturday outpatient -discussed with Dr. Tate who agrees patient is stable for discharge. Will discontinue his garlic and avoid NSAIDs. PCP f/u and call Dr. Tate if he has any acute issues. All questions and concerns were addressed. Return precautions provided. (2) HTN (hypertension): Qualifiers: Hypertension type: primary hypertension Qualified Code(s): I10 - Essential (primary) hypertension Code(s): I10 - Essential (primary) hypertension Status: Acute Assessment and Plan: -stable, was initially mildly elevated but after restarted his home BP meds he is now 138/56 (3) Tachycardia: Code(s): R00.0 - Tachycardia, unspecified Status: Resolved Assessment and Plan: -very mild, could have been dehydration vs anxiety -resolved, HR 77 today, no signs of sepsis or infection DS: Summary Hospital Course Reason for hospitalization: 81 yo male w/ history of DVT, dyslipidemia, hypertension, and gout, admitted with bright red blood per rectum. Please see HPI for further details. Hospital Course: Please see above for details of hospital course. Status at Discharge Cognitive/behavioral status at discharge: stable Functional status at discharge: independent ambulation Overall status at discharge: patient is progressing back to baseline Time Spent with Patient Time attestation: Total time spent providing and/or coordinating discharge services: 32 Time spent: Greater than 30 minutes Exam Narrative: Constitutional: Patient is well-nourished in no acute distress. Patient is alert and oriented x3 HEENT: Moist mucous membranes. No scleral icterus. Neck: Supple Lungs: Lung sounds are clear to auscultation bilaterally. No accessory muscle use. No rhonchi, rales, or wheezes noted. Cardiovascular: Apical pulse is regular rate and rhythm. S1-S2 noted, no S3 or S4 noted. No gallops, murmurs, or rubs noted. Abdomen: Soft, nontender. No rebound or guarding. Extremities: No edema. Nontender. Skin: No rashes or lesions. Warm and dry. Skin is intact. Neurological: No focal neurological deficits. Cranial nerves II-XII grossly intact. Psychiatric: Cooperative, appropriate mood, and affect DS: Data Data Completed and Pending Labs on day of discharge: Labs from last 24 hours 03/01/22 03/01/22 02/28/22 06:42 06:42 11:25 WBC 6.3 RBC 3.59 L Hgb 11.7 L Hct 35.6 L MCV 99.2 MCH 32.6 MCHC 32.9 RDW 12.9 Plt Count 162 MPV 10.8 H Immature Gran % (Auto) 0.5 Neut % (Auto) 68.4 Lymph % (Auto) 12.6 L Brooke % (Auto) 11.4 H Eos % (Auto) 6.5 H Baso % (Auto) 0.6 Lymph # (Auto) 0.80 L Brooke # (Auto) 0.7 H Eos # (Auto) 0.4 H Baso # (Auto) 0.0 Abs Immat Gran (auto) 0.03 Absolute Neuts (auto) 4.3 Absolute Nucleated RBC 0.0 Nucleated RBC % 0.0 Sodium 131 L Potassium 3.4 Chloride 101 Carbon Dioxide 29 Anion Gap 1 L BUN 6 L Creatinine 0.70 Estim Creat Clear Calc 73 Estimated GFR > 60 Glucose 98 POC Capillary Glucose 165 H Calcium 8.1 L Total Bilirubin 1.9 H AST 26 ALT 14 Alkaline Phosphatase 53 Total Protein 6.0 L Albumin 3.0 L 02/28/22 10:25 WBC RBC Hgb Hct MCV MCH MCHC RDW Plt Count MPV Immature Gran % (Auto) Neut % (Auto) Lymph % (Auto) Brooke % (Auto) Eos % (Auto) Baso % (Auto) Lymph # (Auto) Brooke # (Auto) Eos # (Auto) Baso # (Auto) Abs Mirlande
--- NOTE | 2022-03-01 10:52 | PC.NURSE ---
IV removed discharge paperwork explained, pt showering. Awaiting daughter to pickle cutter for discharge home. All questions and concerns answered.
== END 2022-03-01 11:40 | disposition home or self-care (01) | DRG 379 ==
LOC: ANHED 10:57 → ANH3MEDSUR 16:55
PROVIDERS: Internal Medicine; Internal Medicine Gastroenterology; Nurse Practitioner Adult Health; Physician Assistant; Admitting Provider Hospitalist; Emergency Provider Family Medicine; PCP Internal Medicine; Visit Provider Physician Assistant
PROC: 0DJD8ZZ Inspection of Lower Intestinal Tract, Via Natural or Artificial Opening Endoscopic (ICD-10-PCS; CPT 45330; principal; 2022-02-28 10:15)
DX: K57.31 Diverticulosis of large intestine without perforation or abscess with bleeding (principal); K40.90 Unilateral inguinal hernia, without obstruction or gangrene, not specified as recurrent; E78.5 Hyperlipidemia, unspecified; I10 Essential (primary) hypertension; M1A.9XX0 Chronic gout, unspecified, without tophus (tophi); R00.0 Tachycardia, unspecified; Z90.49 Acquired absence of other specified parts of digestive tract; Z86.718 Personal history of other venous thrombosis and embolism; Z96.89 Presence of other specified functional implants; Z98.49 Cataract extraction status, unspecified eye; Z87.891 Personal history of nicotine dependence; Z20.822 Contact with and (suspected) exposure to COVID-19
CPT/HCPCS: 36415; 74177; 78278; 80048; 80053; 82948; 83735; 85014; 85018; 85025; 85610; 85730; 86850; 86900; 86901; 86920; 96361; 96374; 96376; 99285; A9270; A9560; C9803; G0378; J2270; J2704; J7030; J7120; Q9967; U0003; U0005

== ENCOUNTER 2022-03-05 11:14 | Outpatient (CLI) | payer MEDICARE, SELFPAY ==
[2022-03-05 11:32] LABS: Basophils Absolute Auto 0.1 K/mm3 (0.0-0.1); Basophils Percent Auto 0.7 % (0.2-1.2); Eosinophils Absolute Auto 0.4 K/mm3 (0-0.3); Eosinophils Percent Auto 5.4 % (0-4.4); Hematocrit 39.9 % (42.0-52.0); Hemoglobin 13.5 g/dL (14.0-18.0); Immature Granulocyte Absolute 0.04 K/mm3 (0.00-0.031); Immature Granulocyte Percent A 0.6 % (0-0.5); Lymphocytes Absolute Auto 1.12 K/mm3 (0.9-3.2); Mean Corpuscular HGB Conc 33.8 g/dl (32-36); Mean Corpuscular Hemoglobin 32.1 pg (26-34); Mean Platelet Volume 10.6 fl (7.4-10.4); Monocytes Absolute Auto 0.7 K/mm3 (0.1-0.6); Neutrophils Absolute Auto 4.7 K/mm3 (1.3-6.7); Neutrophils Percent Auto 67.3 % (45.5-73.1); Platelet Count Result 222 k/mm3 (150-375); Red Cell Distribution Width 12.6 % (11.5-14.5)
== END 2022-03-05 11:15 | disposition home or self-care (01) ==
LOC: ANHLAB 11:16
PROVIDERS: PCP Internal Medicine; Visit Provider Physician Assistant
DX: K62.5 Hemorrhage of anus and rectum (principal)
CPT/HCPCS: 36415; 85025

== ENCOUNTER 2022-10-02 11:33 | Emergency (ER) | payer MEDICARE, SELFPAY ==
--- NOTE | ~2022-10-02 | US_ITS ---
EXAMINATION: US venous doppler [facility] DATE: 10/02/2022 16:18 INDICATION: swelling . TECHNIQUE: Grayscale images without and with compression and Doppler images of the left lower extremi ty veins were obtained. COMPARISON: None FINDINGS: The left common femoral vein, profunda femoral vein, femoral vein, popliteal vein, peroneal vein, pos terior tibial veins, gastrocnemius vein, and greater saphenous vein are patent. IMPRESSION: 1. Patent left lower extremity veins. No evidence of deep venous thrombosis. Reviewed, dictated and finalized at location K. [employer]
[2022-10-02 11:44] VITALS: BP 158/71; PULSE 118; RESP 20; TEMP 36.8; O2SAT 97
[2022-10-02] MEDS: HYDROcodone/acetaminophen (*CRX) 5-325 MG TABLET 1 TAB PO (14:04)
[2022-10-02 14:45] LABS: Basophils Absolute Auto 0.1 K/mm3 (0.0-0.1); Basophils Percent Auto 0.9 % (0.2-1.2); Eosinophils Absolute Auto 0.2 K/mm3 (0-0.3); Eosinophils Percent Auto 2.9 % (0-4.4); Hemoglobin 13.5 g/dL (14.0-18.0); Immature Granulocyte Absolute 0.04 K/mm3 (0.00-0.031); Immature Granulocyte Percent A 0.5 % (0-0.5); Lymphocytes Absolute Auto 0.98 K/mm3 (0.9-3.2); Lymphocytes Percent Auto 12.4 % (18.3-44.2); Mean Corpuscular HGB Conc 33.8 g/dl (32-36); Mean Corpuscular Hemoglobin 31.6 pg (26-34); Mean Corpuscular Volume 93.7 fl (80-100); Mean Platelet Volume 10.3 fl (7.4-10.4); Monocytes Absolute Auto 0.7 K/mm3 (0.1-0.6); Monocytes Percent Auto 8.6 % (2.6-8.5); Neutrophils Absolute Auto 5.9 K/mm3 (1.3-6.7); Neutrophils Percent Auto 74.7 % (45.5-73.1); Platelet Count Result 222 k/mm3 (150-375); Red Blood Count 4.27 M/mm3 (4.6-6.20); Red Cell Distribution Width 12.5 % (11.5-14.5); White Blood Count 7.9 K/mm3 (4.5-10.0)
[2022-10-02 14:58] LABS: Anion Gap 5 mmol/L (8-16); Blood Urea Nitrogen 11 mg/dL (9-20); Calcium 8.8 mg/dL (8.4-10.2); Carbon Dioxide 25 mmol/L (22-30); Chloride 103 mmol/L (98-107); Estimated CRCL calculation 53 ml/min; Estimated Glomerular Filt Rate > 60; Glucose 97 mg/dL (65-110); Potassium 4.6 mmol/L (3.4-5.0); Sodium 133 mmol/L (137-145)
--- NOTE | 2022-10-02 18:33 | ED.WOUNDLAC ---
HPI - Wound/Laceration General Chief Complaint: Wound/Laceration Stated Complaint: left leg wound debridement with pain Time Seen by Provider: 10/02/22 13:38 History of Present Illness HPI narrative: Patient is an 81-year-old male who presents ER with a wound to the posterior aspect of his left back leg. He has been evaluated by wound care. He has been having increased pain since 09/25/2022. He has been on oral antibiotics for cellulitis. He is having no fevers or chills or sweats. No chest pain or chest pressure. He reports chronic edema to the area since having it treated. No increase in drainage. Majority of his pain occurs when he removes his bandage. Related Data Home Medications Medication Instructions Recorded Confirmed magnesium 200 mg tablet 200 mg PO WEEKLY 02/26/22 09/25/22 Allergies Allergy/AdvReac Type Severity Reaction Status Date / Time No Known Drug Allergies Allergy Unknown Unknown Verified 10/02/22 11:34 Review of Systems Review of Systems: All systems reviewed & are unremarkable except as noted in HPI and below Constitutional: Constitutional: Denies chills, Denies fatigue and Denies fever(s) ENT: Denies nasal congestion and Denies sore throat Cardiovascular: Cardiovascular: Denies chest pain, Denies rapid heart rate and Denies radiating jaw, neck or arm pain Respiratory: Respiratory: Denies cough, Denies dyspnea and Denies wheezing Musculoskeletal: Comments: Lower extremity edema noted Integumentary/Breasts: Skin/Breast: Denies pruritus and Denies erythema Comments: Chronic wound posterior left leg [facility] Past Medical History Medical History Ascending cholangitis (07/2014) Clavicle fracture Deep venous thrombosis Dyslipidemia Essential (primary) hypertension Gallstones Gout Surgical History Surgical History History of cataract surgery History of cholecystectomy History of endoscopic retrograde cholangiopancreatography (09/2011) With removal obstructing biliary stone, biliary sphincterotomy and stent placement. History of esophagogastroduodenoscopy Family History Family History Father Coronary artery disease Social History Social History Social History: Surrogate decision maker: Neil Ferrell, son. Code status: Full code. Smoking packs per day: 3 Smoking cigarettes per day: 60.0 Years smoked: 37 Smoking pack-years: 111.00 Smoking status: Former smoker Tobacco type: cigarettes Second hand tobacco smoke exposure: No Additional smoking assessment comments: Quit in the 1994.. Alcohol intake: current Drinks per week: 15 Alcohol use details: 4-5 beers most nights of the week. Substance use: never Substance use type: does not use Lack of Transportation: No Lack of Food: Never True Current Housing: I Have Housing Concerned About Future Housing: No Difficulty Paying Gas/Electric Bills: No Difficulty Paying for Meds: No Currently Unemployed: No Education: Decline to Answer Difficulty w/ Childcare or Family Care: No Additional living arrangements comments: . Lives alone in [place]. Additional occupation/education comments: Retired. Spiritual care concerns: No Exam Narrative: GENERAL: Well-appearing, well-nourished, and in no acute distress. HEAD: Normocephalic, atraumatic. CHEST: Clear to auscultation. No respiratory distress. HEART: Regular rate and rhythm. Normal peripheral pulses. ABDOMEN: Soft, nontender, nondistended. EXTREMITIES: Normal range of motion. Edema left lower extremity above and below the wrapping of the chronic wound. SKIN: Warm, dry, chronic wound changes left lower extremity proximal to the Achilles insertion and just beneath the calf. There is some mild discharge without surrounding c
== END 2022-10-02 18:46 | disposition home or self-care (01) ==
PROVIDERS: Emergency Provider Emergency Medicine; PCP Family Medicine
DX: S81.802A Unspecified open wound, left lower leg, initial encounter (principal); Z87.891 Personal history of nicotine dependence; I10 Essential (primary) hypertension; Z86.718 Personal history of other venous thrombosis and embolism; X58.XXXA Exposure to other specified factors, initial encounter
CPT/HCPCS: 36415; 80048; 85025; 93971; 99284; A9270

== ENCOUNTER 2022-10-11 07:30 | Outpatient (RCR) | payer MEDICARE, SELFPAY ==
[2022-07-27 10:39] VITALS: BMI 26.5
== END 2022-10-25 23:59 | disposition home or self-care (01) ==
LOC: ANHWOC 07:30
PROVIDERS: PCP Family Medicine; Visit Provider Family Medicine
DX: I83.023 Varicose veins of left lower extremity with ulcer of ankle (principal); L97.329 Non-pressure chronic ulcer of left ankle with unspecified severity
CPT/HCPCS: 99212; 99213; G0463

== ENCOUNTER 2022-10-11 07:45 | Emergency (ER) | payer MEDICARE, SELFPAY ==
[2022-10-11 08:01] VITALS: BP 151/68; PULSE 87; RESP 16; TEMP 36.5; O2SAT 97
[2022-10-11] MEDS: MORPHINE SULFATE (*CRX) 4 MG/ML INJ IV PUSH (08:46)
[2022-10-11 08:48] LABS: Basophils Absolute Auto 0.1 K/mm3 (0.0-0.1); Basophils Percent Auto 0.8 % (0.2-1.2); Eosinophils Absolute Auto 0.2 K/mm3 (0-0.3); Eosinophils Percent Auto 3.1 % (0-4.4); Hematocrit 42.3 % (42.0-52.0); Immature Granulocyte Absolute 0.04 K/mm3 (0.00-0.031); Immature Granulocyte Percent A 0.5 % (0-0.5); Lymphocytes Absolute Auto 0.89 K/mm3 (0.9-3.2); Lymphocytes Percent Auto 11.3 % (18.3-44.2); Mean Corpuscular HGB Conc 33.1 g/dl (32-36); Mean Corpuscular Hemoglobin 31.9 pg (26-34); Mean Corpuscular Volume 96.4 fl (80-100); Mean Platelet Volume 10.1 fl (7.4-10.4); Monocytes Absolute Auto 0.7 K/mm3 (0.1-0.6); Monocytes Percent Auto 8.4 % (2.6-8.5); Neutrophils Percent Auto 75.9 % (45.5-73.1); Platelet Count Result 192 k/mm3 (150-375); Red Blood Count 4.39 M/mm3 (4.6-6.20); Red Cell Distribution Width 12.9 % (11.5-14.5); White Blood Count 7.9 K/mm3 (4.5-10.0)
[2022-10-11 09:13] LABS: Alanine Aminotransferase 16 U/L (6-50); Albumin Level 3.6 g/dL (3.5-5.1); Alkaline Phosphatase 57 U/L (38-126); Anion Gap 4 mmol/L (8-16); Aspartate Amino Transferase 34 U/L (17-59); Bilirubin,Total 1.5 mg/dL (0.2-1.3); Blood Urea Nitrogen 8 mg/dL (9-20); Calcium 8.3 mg/dL (8.4-10.2); Carbon Dioxide 29 mmol/L (22-30); Chloride 96 mmol/L (98-107); Estimated CRCL calculation 58 ml/min; Estimated Glomerular Filt Rate > 60; Glucose 95 mg/dL (65-110); Potassium 4.2 mmol/L (3.4-5.0); Sodium 129 mmol/L (137-145)
--- NOTE | 2022-10-11 09:42 | ED.EXTPRO ---
HPI - Extremity Problem General Chief complaint: Extremity Problem,Nontraumatic Stated complaint: left leg pain Time Seen by Provider: 10/11/22 08:06 History of Present Illness HPI Narrative: Pt presents with left leg redness and pain. Pt denies fever or chills. Pt said his PCP called in antibiotic and pain medicine. Pt just started the antibiotic yesterday and read the warning label on the pain medicine and got scared and got rid of it. Pt has no apin medication. Told him just to use it only when he needs it and only for a few days. Pt agreed to get it filled if i write it again. Related Data Home Medications Medication Instructions Recorded Confirmed magnesium 200 mg tablet 200 mg PO WEEKLY 02/26/22 09/25/22 Allergies Allergy/AdvReac Type Severity Reaction Status Date / Time No Known Drug Allergies Allergy Unknown Unknown Verified 10/11/22 08:07 Review of Systems Review of Systems: All systems reviewed & are unremarkable except as noted in HPI and below PMFSH Past Medical History Medical History Ascending cholangitis (07/2014) Clavicle fracture Deep venous thrombosis Dyslipidemia Essential (primary) hypertension Gallstones Gout Surgical History Surgical History History of cataract surgery History of cholecystectomy History of endoscopic retrograde cholangiopancreatography (09/2011) With removal obstructing biliary stone, biliary sphincterotomy and stent placement. History of esophagogastroduodenoscopy Family History Family History Father Coronary artery disease Social History Social History Social History: Surrogate decision maker: Neil Ferrell, son. Code status: Full code. Smoking packs per day: 3 Smoking cigarettes per day: 60.0 Years smoked: 37 Smoking pack-years: 111.00 Smoking status: Former smoker Tobacco type: cigarettes Second hand tobacco smoke exposure: No Additional smoking assessment comments: Quit in the 1994.. Alcohol intake: current Drinks per week: 15 Alcohol use details: 4-5 beers most nights of the week. Substance use: never Substance use type: does not use Lack of Transportation: No Lack of Food: Never True Current Housing: I Have Housing Concerned About Future Housing: No Difficulty Paying Gas/Electric Bills: No Difficulty Paying for Meds: No Currently Unemployed: No Education: Decline to Answer Difficulty w/ Childcare or Family Care: No Additional living arrangements comments: . Lives alone in [place]. Additional occupation/education comments: Retired. Spiritual care concerns: No Exam Const: General: healthy appearing Nutritional Appearance: well nourished Orientation/consciousness: patient oriented x3 Limitations: no limitations Resp: Effort & Inspection: normal respiratory effort Auscultation: clear to auscultation bilaterally Cardio: Rate: regular rate Rhythm: regular rhythm GI: GI Palp: Yes Soft to palpation Auscultation: normal bowel sounds Skin: Other: erythema to anterior singer, no calf pain or tenderness no abscess, edema to both legs noted Neuro: General: patient oriented x3, moves all extremities, no meningeal signs and no focal motor deficits Speech: normal speech Extrem: General: edema Other: pitting edema to both legs with erythema noted to left anterior leg without lymphangitis Psych: Mental Status: mental status grossly normal Affect: normal affect Attitude: cooperative Course Course Emergency Course: told patient to continue the prescribed antibiotic (keflex) and will refill norco and patient will only use if needed. Vital Signs Vital signs: Vital Signs Temperature 97.7 F 10/11/22 08:01 Pulse Rate 87 10/11/22 08:01 Respiratory Rate 16 10/11/22
== END 2022-10-11 10:30 | disposition home or self-care (01) ==
PROVIDERS: Emergency Provider Emergency Medicine; PCP Family Medicine
DX: L03.116 Cellulitis of left lower limb (principal); Z86.718 Personal history of other venous thrombosis and embolism; E78.5 Hyperlipidemia, unspecified; I10 Essential (primary) hypertension; M10.9 Gout, unspecified; Z98.49 Cataract extraction status, unspecified eye
CPT/HCPCS: 36415; 80053; 85025; 87040; 96374; 99212; 99284; G0463; J2270

== ENCOUNTER 2023-09-05 11:50 | Outpatient (CLI) | payer MEDICARE, SELFPAY ==
[2023-09-05 19:13] LABS: Alanine Aminotransferase 15 U/L (6-50); Albumin Level 3.9 g/dL (3.5-5.1); Alkaline Phosphatase 64 U/L (38-126); Anion Gap 7 mmol/L (8-16); Aspartate Amino Transferase 28 U/L (17-59); Bilirubin,Total 2.4 mg/dL (0.2-1.3); Blood Urea Nitrogen 7 mg/dL (9-20); Calcium 8.8 mg/dL (8.4-10.2); Carbon Dioxide 27 mmol/L (22-30); Chloride 102 mmol/L (98-107); Cholesterol 181 mg/dL (0-200); Estimated Glomerular Filt Rate > 60; Glucose 94 mg/dL (65-110); Potassium 3.9 mmol/L (3.4-5.0); Sodium 136 mmol/L (137-145); Triglycerides 45 mg/dL (<150); Uric Acid 4.2 mg/dL (3.5-8.5)
[2023-09-05 19:19] LABS: LDL Cholesterol Direct 45 mg/dL
[2023-09-05 19:23] LABS: Basophils Absolute Auto 0.1 K/mm3 (0.0-0.1); Basophils Percent Auto 0.6 % (0.2-1.2); Eosinophils Absolute Auto 0.2 K/mm3 (0-0.3); Eosinophils Percent Auto 1.6 % (0-4.4); Hematocrit 45.3 % (42.0-52.0); Hemoglobin 14.9 g/dL (14.0-18.0); Immature Granulocyte Absolute 0.03 K/mm3 (0.00-0.031); Immature Granulocyte Percent A 0.3 % (0-0.5); Lymphocytes Absolute Auto 1.07 K/mm3 (0.9-3.2); Lymphocytes Percent Auto 10.9 % (18.3-44.2); Mean Corpuscular HGB Conc 32.9 g/dl (32-36); Mean Corpuscular Hemoglobin 32.7 pg (26-34); Mean Corpuscular Volume 99.3 fl (80-100); Mean Platelet Volume 11.6 fl (7.4-10.4); Monocytes Absolute Auto 0.9 K/mm3 (0.1-0.6); Monocytes Percent Auto 9.5 % (2.6-8.5); Neutrophils Absolute Auto 7.5 K/mm3 (1.3-6.7); Neutrophils Percent Auto 77.1 % (45.5-73.1); Platelet Count Result 229 k/mm3 (150-375); Red Blood Count 4.56 M/mm3 (4.6-6.20); Red Cell Distribution Width 13.1 % (11.5-14.5); White Blood Count 9.8 K/mm3 (4.5-10.0)
[2023-09-05 19:30] LABS: HDL Direct 138 mg/dL
== END 2023-09-05 11:51 | disposition home or self-care (01) ==
LOC: ANHGOSHLAB 11:51
PROVIDERS: PCP Family Medicine; Visit Provider Family Medicine
DX: R53.83 Other fatigue (principal); Z13.220 Encounter for screening for lipoid disorders; I10 Essential (primary) hypertension; Z13.228 Encounter for screening for other metabolic disorders; M10.9 Gout, unspecified
CPT/HCPCS: 36415; 80053; 80061; 84550; 85025

== ENCOUNTER 2025-01-14 08:35 | Emergency (ER) | payer MEDICARE, SELFPAY ==
--- NOTE | ~2025-01-14 | XR_ITS ---
XR finger 1st LT min 2V 01/14/2025 08:57 Indication: Left first finger pain after blunt trauma Procedure: 3 views left first finger Comparison: No prior studies for comparison. Findings: Mild polyarticular osteoarthritis. Osteopenia. No foreign bodies. No focal soft tissue abno rmality. Impression: 1: No acute fracture. Reviewed, dictated and finalized at location A. Impression: 1: No acute fracture.
[2025-01-14 08:46] VITALS: BP 145/108; PULSE 128; RESP 16; TEMP 36.7; O2SAT 98
--- NOTE | 2025-01-14 09:04 | ED_ITS ---
HPI - Extremity Injury (Upper) General Chief Complaint: Extremity Injury, Upper Stated Complaint: Left Hand Thumb Pain Time Seen by Provider: 01/14/25 09:12 Source: patient, RN notes reviewed and old records reviewed Mode of arrival: ambulatory Limitations: no limitations History of Present Illness HPI narrative: 84-year-old male presents to the [facility] with left thumb pain. States that he smashed his thumb in a door yesterday. soaked in cold water. Related Data Home Medications ?Medication ?Instructions ?Recorded ?Confirmed ?Last Taken ?Type magnesium 200 mg tablet 200 mg PO WEEKLY 02/26/22 01/14/25 02/23/22 09:00 History Allergies Allergy/AdvReac Type Severity Reaction Status Date / Time No Known Drug Allergies Allergy Unknown Unknown Verified 01/14/25 09:07 Review of Systems Review of Systems: All systems reviewed & are unremarkable except as noted in HPI and below Constitutional: Constitutional: Reports no additional constitutional complaints ENT: Reports system reviewed and no additional complaints, except as documented Cardiovascular: Cardiovascular: Reports no additional cardiovascular complaints, Denies chest pain and Denies dyspnea Respiratory: Respiratory: Reports no additional respiratory complaints, Denies chest congestion, Denies cough and Denies dyspnea Musculoskeletal: Musculoskeletal: Reports as per HPI Integumentary/Breasts: Skin/Breast: Reports system reviewed and no additional complaints, except as docu PMFSH Past Medical History Medical History Dyslipidemia Deep venous thrombosis Ascending cholangitis (07/2014) Essential (primary) hypertension Clavicle fracture Gout Gallstones Surgical History Surgical History History of cholecystectomy History of endoscopic retrograde cholangiopancreatography (09/2011) With removal obstructing biliary stone, biliary sphincterotomy and stent placement. History of esophagogastroduodenoscopy History of cataract surgery Family History Family History Father Coronary artery disease Social History Social History Social History: Surrogate decision maker: Neil Ferrell, son. Code status: Full code. Smoking packs per day: 3 Smoking cigarettes per day: 60.0 Years smoked: 37 Smoking pack-years: 111.00 Smoking status: Former smoker Tobacco type: cigarettes Second hand tobacco smoke exposure: No Additional smoking assessment comments: Quit in the 1994.. Alcohol intake: current Drinks per week: 15 Alcohol use details: 4-5 beers most nights of the week. Substance use: never Substance use type: does not use Lack of Transportation: No Lack of Food: Never True Current Housing: I Have Housing Concerned About Future Housing: No Difficulty Paying Gas/Electric Bills: No Difficulty Paying for Meds: No Currently Unemployed: No Education: Decline to Answer Difficulty w/ Childcare or Family Care: No Additional living arrangements comments: . Lives alone in [place]. Additional occupation/education comments: Retired. Spiritual care concerns: No Comments At the time of my signature, I reviewed and agree with the nursing past medical, surgical, social, and family history. There is no relevant family history pertinent to the patient complaint. Exam Const: General: cooperative, comfortable, no acute distress, well developed, alert and well nourished Nutritional Appearance: well nourished Orientation/consciousness: patient oriented x3 Limitations: no limitations HENMT: Head: normal to inspection Eyes: General: appearance normal, both eyes and all related structures Alignment and Position: alignment normal Neck: Neck: normal visual inspection, full ROM, no lymphadenopathy and no meningeal signs Chest: Chest palpation & inspection: normal inspection of the chest Resp: Effort & Inspection: normal respiratory effort and able to speak in complete sentences Cardio: Rate: regular rate Skin: General skin exam: normal color and no rashes or lesions noted Other: multiple abrasions noted to the distal left palmar aspect subungual hematoma noted to the left thumb Neuro: General: patient oriented x3, gait normal, moves all extremities and no meningeal signs Cognition (Neuro): normal cognition Speech: normal speech Gait exam (Neuro): Normal gait present Extrem: General: normal to inspection, full ROM, capillary refill normal and normal gait Left upper extremity: hand normal capillary refill, tenderness of the thumb, vascular exam radial pulse present and normal capillary refill, normal ROM of fingers, swelling of the thumb involving the entire digit, abrasion of the thumb at the distal phalanx and ecchymosis of the thumb involving the fingernail and involving the entire digit; no crepitus Psych: Appearance: grossly normal and well kempt Mental Status: mental status grossly normal Speech and movement: Normal speech and movement present and Clear speech present Affect: normal affect Attitude: cooperative Course Course Level of Care: Express Care Visit Vital Signs Vital signs: Vital Signs Temperature 98.0 F 01/14/25 08:46 Pulse Rate 128 H 01/14/25 08:46 Respiratory Rate 16 01/14/25 08:46 Blood Pressure 145/108 H 01/14/25 08:46 Pulse Oximetry 98 01/14/25 08:46 Oxygen Delivery Room Air 01/14/25 08:46 Temperature 98.0 F 01/14/25 08:46 Pulse Rate 128 H 01/14/25 08:46 Respiratory Rate 16 01/14/25 08:46 Blood Pressure 145/108 H 01/14/25 08:46 Pulse Oximetry 98 01/14/25 08:46 Oxygen Delivery Room Air 01/14/25 08:46 Reviewed Procedures Nail Trephination Nail Trephination #1: Nail Trephination Date: 01/14/25 Nail Trephination Time: 09:35 Time out: Yes Location (finger): left and thumb Sterile prep: betadine Method of drainage: nail cautery Procedure successful: Yes Patient tolerated procedure: well MDM - Extremity Injury (Upper) MDM Narrative Medical decision making narrative: patient sitting in exam room. Patient is nontoxic. blood pressure and heart rate are elevated. Patient states that he normally takes his medications at 11:00 a.m. for his blood pressure. Patient smashed his finger in a door last night. Cleaned, covered abrasions with skin glue subungual hematoma is noted, cautery tool used to drain some of the hematoma. X-ray negative for fracture tetanus updated last tetanus was November of 2015. Patient would rather go to [facility] to update his tetanus. patient appropriate for outpatient treatment with close follow-up Discharge instructions reviewed with patient, as well as provided in writing per nursing staff. The instructions also include specific and strict return/GO TO THE ER as well as f/u information. All questions have been answered, and the patient deny any further questions with discharge and discharge plan. Some parts of this dictation were generated by voice recognition software and may contain typographical and/or grammatical inaccuracies. Differential Diagnosis Differential diagnosis: Likely other ( finger fracture, finger contusion, s ubungual) Imaging Data Radiologist's impression: XR finger 1st LT min 2V 01/14/2025 08:57 Indication: Left first finger pain after blunt trauma Procedure: 3 views left first finger Comparison: No prior studies for comparison. Findings: Mild polyarticular osteoarthritis. Osteopenia. No foreign bodies. No focal soft tissue abnormality. Impression: 1: No acute fracture. Critical Care Time Critical Care Time Critical Care Time: No Discharge Plan Discharge Clinical Impression: Subungual hematoma of digit of hand, Contusion of finger of left hand, Abrasion of finger of left hand Patient Disposition: Home, Self-Care Condition: Stable Instructions: Antibiotic Form, Subungual Hematoma (ED) Additional Instructions: take Tylenol as needed for pain continue to rest, ice and elevate every 2-3 hours for 15-20 minutes while awake soak twice daily with warm soapy water and Epson salt for 15-20 minutes today your blood pressure was elevated. Please follow-up with your primary care provider within 2 weeks at this rechecked. For new or worsening symptoms please directly Patient Language: Omani Prescriptions: No Action magnesium 200 mg Tablet 200 mg PO WEEKLY Rx Instructions: on fridays amlodipine 5 mg tablet 5 mg PO DAILY Qty: 90 4RF allopurinol 100 mg tablet 100 mg PO DAILY Qty: 90 1RF Follow-up/Referrals: Kristina Knowles DO [Primary Care Provider] - 2 Weeks ( [facility] follow-up) Time of Disposition: 09:42
== END 2025-01-14 09:45 | disposition home or self-care (01) ==
PROVIDERS: Emergency Provider Nurse Practitioner; PCP Family Medicine
DX: S60.112A Contusion of left thumb with damage to nail, initial encounter (principal); X58.XXXA Exposure to other specified factors, initial encounter; S60.312A Abrasion of left thumb, initial encounter; Z87.891 Personal history of nicotine dependence; E78.5 Hyperlipidemia, unspecified; I10 Essential (primary) hypertension; M10.9 Gout, unspecified; Z86.718 Personal history of other venous thrombosis and embolism
CPT/HCPCS: 11740; 73140; 99213; G0463